=== PATIENT | male | born 1970 | race Caucasian/White ===

== ENCOUNTER → 2017-10-18 08:12 | Outpatient (CLI) | payer BC, SELFPAY ==
[2017-10-18 08:52] LABS: Hemoglobin A1c 7.4 % (4.2-6.3)
[2017-10-18 08:58] LABS: ALB/GLOB Ratio 1.4 RATIO (0.9-2.4); AST(SGOT) 18 U/L (15-37); Alanine Aminotransfer ALT/SGPT 45 U/L (16-61); Alkaline Phosphatase 68 U/L (45-117); Anion Gap 8 (5-15); BUN 17 mg/dL (7-18); BUN/Creat Ratio 18.6 RATIO (10-20); Calcium,Total 8.9 mg/dL (8.5-10.1); Chloride 108 mmol/L (98-107); Cholesterol 150 mg/dL (200); Creatinine, Serum 0.92 mg/dL (0.70-1.30); EST Glomerular Filtration Rate 94 mL/min (>60); Est Glom Filt Rate - Afr Amer 114 mL/min (>60); Globulin 2.9 g/dL (2.2-4.2); Glucose 148 mg/dL (74-106); High Density Lipoprotein 27 mg/dL; Potassium 4.4 mmol/L (3.5-5.1); Protein, Total 6.9 g/dL (6.4-8.2); Sodium Level 141 mmol/L (136-145); Thyroid Stim Hormone (TSH) 1.52 uIU/mL (0.358-3.74); Triglycerides 214 mg/dL; Very Low Density Lipoprotein 43 mg/dL (5-40)
== END ==
DX: E11.9 Type 2 diabetes mellitus without complications (principal); Z13.29 Encounter for screening for other suspected endocrine disorder
CPT/HCPCS: 80053; 80061; 83036; 84443

== ENCOUNTER → 2017-12-18 09:25 | Outpatient (CLI) | payer BC, SELFPAY ==
--- NOTE | 2017-12-18 09:37 | EKG12_ITS ---
Test Reason : PREOP Blood Pressure : / mmHG Vent. Rate : 063 BPM Atrial Rate : 063 BPM P-R Int : 158 ms QRS Dur : 088 ms QT Int : 388 ms P-R-T Axes : 016 025 006 degrees QTc Int : 397 ms Normal sinus rhythm Normal ECG Confirmed by BESS BARRERA, MARIA ESTHER ([id number]), book or script editor FRED MENDIETA ([id number]) on 12/20/2017 2:01:56 PM Referred By: George Aguilar Confirmed By:MARIA ESTHER KELLOGG MD
[2017-12-18 09:55] LABS: Hematocrit 46.9 % (40-54); Mean Corp Hgb Conc 34.1 g/gl (32-36); Mean Corpuscular Hgb 29.3 pg (27.0-32.0); Mean Corpuscular Volume 85.7 fL (80-94); Mean Platelet Vol. 8.8 fl (6.2-12.0); Platelet Count 282 K/mm3 (150-450); RBC Distribution Width CV 13.2 % (11.6-14.6); RBC Distribution Width SD 41.1 fl (35.1-43.9); Red Blood Count 5.47 M/mm3 (4.6-6.2); White Blood Count 6.6 K/mm3 (4.4-11.0)
[2017-12-18 09:56] LABS: Scan Indicated on CBC? Y/N NO
[2017-12-18 10:15] LABS: Anion Gap 7 (5-15); BUN 15 mg/dL (7-18); BUN/Creat Ratio 15.4 RATIO (10-20); Chloride 102 mmol/L (98-107); Creatinine, Serum 0.97 mg/dL (0.70-1.30); EST Glomerular Filtration Rate 88 mL/min (>60); Est Glom Filt Rate - Afr Amer 106 mL/min (>60); Glucose 235 mg/dL (74-106); Potassium 4.1 mmol/L (3.5-5.1); Sodium Level 137 mmol/L (136-145)
== END ==
PROVIDERS: Family Provider Family Medicine; PCP Family Medicine; Visit Provider Orthopaedic Surgery
DX: Z01.810 Encounter for preprocedural cardiovascular examination (principal)
CPT/HCPCS: 36415; 80048; 85027; 93005

== ENCOUNTER 2018-08-14 16:00 | Outpatient (RCR) | payer BC, SELFPAY ==
--- NOTE | 2018-09-25 15:26 | HP.PTDCNRP_ITS ---
HP - Discharge Summary (1) - Patient Information JHONNY VIRAMONTES was seen in my office for initial evaluation on 08/05/18. The following Plan of Care was established for this patient: Initial Frequency: 2x /Week Initial Duration: 4 Weeks - Anticipated Interventions Patient/Client Instruction: Educate patient on: Condition, Plan of Care For the Purpose of:: To decrease pain, To increase ROM, To improve muscle perfo rmance and motor function, To improve ability to perform ADL's, To increase tolerance to activity/condition/position, To improve performance and independence with ADL's, To improve ability of physical actions for home/community/work/leisure, To improve health of tissue, To decrease soft tissue restriction, To reduce risk of recurrence, To improve ability to perform tasks related to life management Therapeutic Exercise to Include: Strength training, Body mechanics, Postural training, Flexibilty training, Active ROM, Dynamic Lumbar Stabilization, Molly Exercises For the Purpose of:: To decrease pain, To increase ROM, To improve muscle performance and motor function, To improve ability to perform ADL's, To increase tolerance to activity/condition/position, To improve performance and independence with ADL's, To decrease level of supervision to perform tasks, To improve ability of physical actions for home/community/work/leisure, To improve health of tissue, To decrease soft tissue restriction, To improve ability to perform tasks related to life management TENS: Yes IF ES: Yes Cryotherapy (ice pack, ice massage): Yes Thermo therapy (hot pack): Yes Ultrasound (thermal/non thermal): Yes For the Purpose of:: To decrease pain, To improve nutrient delivery to tissue, To improve health of tissue, To decrease soft tissue restriction This patient was last seen in our office 08/14/18. Pertinent comments regarding their Physical therapy will appear below: Patient seen for PT for lumbar pain with PT focusing on Molly ex's ,postutre ,DLS . Patient met goals doing well,thus d/c. At this point I will be discontinuing this patient from physical therapy. I would be happy to see this patient again in the future if found appropriate by the physician. Thank you! Americo Espino, PT, Cert MDT, OCS
--- NOTE | 2018-09-25 15:26 | HP.PTEVAL_ITS ---
Patient's Visit Information JHONNY VIRAMONTES is a 48 year old M referred to Physical Therapy by Ivy Quinn DO with a diagnosis of BACK PAIN. Date of Evaluation: 08/05/18 Physical Therapist: Americo Espino PT, Cert MDT, [facility] - Visit Plan Frequency: 2x /Week Duration: 4 Weeks Plan: DARIANA EX'S.DLS ABD BACK.MODALITIES ,POSTURAL EX'S - Subjective Findings: This 48 y/o male presents to physical therapy with low back pain. Patient has had lumbar pain 1 / ,while combining it a hole travis lumbar. Then noticed incidous onset of lumbar pain symmtrical and lateral leg thigh to knee occassional lateral toe. Symptoms today left lumbar to lateral hip to knee. Agrravating factors standing, bending,lifting,squatting,walking. Aleviating symptoms with rest,sitting. C/O occassioanlly parathesia/tingling left leg. Coughing/seezing-. Bowel/bladder good. Sleeping good. Patient seen x-rays DDD/spurs. Seen chiropractor made symptoms worse.Patient pain affects QOL and job demands/jimenez. SOCAIL: . VOCATION:[employer],jimenez part-time - Pain Bilateral Back Pain Intensity (Out of 10): 0 - Objective POSTURE: reduce lordosis. GAIT: mild foward posture slow antalgic gait. PALAPTION: unremarkable. NEURO: intact ,reflexes L3-4,L4-5,L5-S1 3/3,denies parathesia/tingling. LUMBAR ROM: flexion min loss,extension mod loss,side g lides min loss pain ..with flexion /extension. MMT: quads/hams/hip 4/5,ankle 4/5. FLEXABLITY: hams min tight - Special Tests L/S Slump test left side: Negative L/S Slump test right side: Negative L/S Left Straight Leg Raise: Negative L/S Right Straight Leg Raise: Negative Lumbar Standing: Flexion - Mechanical Response: No effect Lumbar Standing: Flexion - Symptoms During Testing: Increases Lumbar Standing: Flexion - Symptoms After Testing: Worse Lumbar Standing: Extension - Mechanical Response: No effect Lumbar Standing: Extension - Symptoms During Testing: Increases Lumbar Standing: Extension - Symptoms After Testing: Worse Lumbar Standing: Right Side Glides - Mechanical Response: No effect Lumbar Standing: Right Side [place] - Symptoms During Testing: Increases Lumbar Standing: Right Side [place] - Symptoms After Testing: No worse Lumbar Standing: Left Side [place] - Mechanical Response: No effect Lumbar Standing: Left Side [place] - Symptoms During Testing: Decreases Lumbar Standing: Left Side [place] - Symptoms After Testing: No better Lumbar Lying: Flexion - Mechanical Response: No effect Lumbar Lying: Flexion - Symptoms During Testing: Increases Lumbar Lying: Flexion - Symptoms After Testing: Worse Lumbar Lying: Extension - Symptoms During Testing: No effect Lumbar Lying: Extension - Symptoms After Testing: Worse Comments:: lateral hip leg - Goals Goal 1:: Independant with HEP Goal Time Frame: 4-6 Weeks Goal 2:: Independant with posture/body mechanics Goal Time Frame: 4-6 Weeks Goal 3:: Patient to decrease lumbar pain and radicular symptoms by 50% or greater to improve function. Goal Time Frame: 4-6 Weeks Goal 4:: Patient to improve lumbar ROM for function of rwecovery Goal Time Frame: 4-6 Weeks Goal 5:: Patient to improve PREETHI back score by 5 points or greater to improve QOL. Goal Time Frame: 4-6 Weeks - Rehabilitation Potential Physical Therapy Diagnosis: This patient appears to have derrangement below knee vs lateral stenosis with pain with motion,and impairs ability to perform arben demands this benifit from skille PT Rehabilitation Potential: Good - Anticipated Interventions Patient/Client Instruction: Educate patient on: Condition, Plan of Care For the Purpose of:: To decrease pain, To increase ROM, To improve muscle performance and motor function, To improve ability to perform ADL's, To increase tolerance to activity/condition/position, To improve performance and independence with ADL's, To improve ability of physical actions for home/community/work/leisure, To improve health of tissue, To decrease soft tissue restriction, To reduce risk of recurrence, To improve ability to perform tasks related to life management Therapeutic Exercise to Include: Strength training, Body mechanics, Postural training, Flexibilty training, Active ROM, Dynamic Lumbar Stabilization, Mc[place]zie Exercises For the Purpose of:: To decrease pain, To increase ROM, To improve muscle performance and motor function, To improve ability to perform ADL's, To increase tolerance to activity/condition/position, To improve performance and independence with ADL's, To decrease level of supervision to perform tasks, To improve ability of physical actions for home/community/work/leisure, To improve health of tissue, To decrease soft tissue restriction, To improve ability to perform tasks related to life management TENS: Yes IF ES: Yes Cryotherapy (ice pack, ice massage): Yes Thermo therapy (hot pack): Yes Ultrasound (thermal/non thermal): Yes For the Purpose of:: To decrease pain, To improve nutrient delivery to tissue, To improve health of tissue, To decrease soft tissue restriction Thank you for the opportunity to evaluate your patient. For Medicare and Medicare HMO plans, please review the plan of care and approve it. It will need to be FAXED BACK to us at [phone] for Medicare purposes. For Medicare only, by signing this I certify the plan of care. Please let me know if there are questions or concerns regarding this plan of care. Physician Signature:__ Date:
== END 2018-08-14 19:00 | disposition home or self-care (01) ==
LOC: PT 16:00
DX: M54.5 Low back pain (principal)
CPT/HCPCS: 97014; 97110; 97161; G0283

== ENCOUNTER 2020-10-03 19:26 | Emergency (ER) | payer OTHER, SELFPAY ==
[2020-10-03 19:27] VITALS: BP 160/89; PULSE 145; RESP 16; TEMP 36.7; O2SAT 94; BMI 32.6
[2020-10-03 19:35] VITALS: BP 156/100; PULSE 118; RESP 20; O2SAT 96
--- NOTE | 2020-10-03 19:41 | CT_ITS ---
STUDY: CT ABDOMEN AND PELVIS WITHOUT CONTRAST REASON FOR EXAM: Male, 50 years old. RUQ PAIN X FEW HOURS WITH N/V AND DYSPNEA, HX APPY, LUMBAR SX, HTN RADIATION DOSAGE (If Supplied By Facility): CTDIvol = ( 16.80 ) mGy, DLP = ( 940.21 ) mGycm TECHNIQUE: Transaxial images were obtained from the dome of the diaphragm to the symphysis pubis without oral contrast, and without intravenous contrast. Sagittal and coronal images were reconstructed. Individualized dose optimization techniques were used for this CT. COMPARISON: CT of abdomen and pelvis dated OCTOBER 11, 2014 FINDINGS: The visualized lung bases are unremarkable. The visualized portions of the heart are within normal limits. Normal liver. Normal gallbladder and extrahepatic biliary system. Normal spleen. Normal pancreas. Normal bilateral adrenal glands. Normal right kidney. Normal left kidney. No hydronephrosis or radiopaque stones. Normal visualized stomach. The small bowel loops are mildly fluid-filled. No evidence of small bowel obstruction. Normal colon. There are surgical clips in the region of the appendix consistent with a prior appendectomy. There is diffuse atherosclerotic calcification of the abdominal aorta, without a demonstrated aneurysm. Normal inferior vena cava. Normal retroperitoneum. Normal urinary bladder. Normal abdominal wall. There are diffuse degenerative changes of the visualized lumbar spine. CT/Abdomen/Pelvis without Cont IMPRESSION: The small bowel loops are mildly fluid-filled. No evidence of small bowel obstruction. Electronically Signed: Dominic Dc MD at 20:35 EDT , Service support ,
--- NOTE | 2020-10-03 19:42 | EKG12_ITS ---
Test Reason : ABDOMINAL PAIN Blood Pressure : / mmHG Vent. Rate : 120 BPM Atrial Rate : 120 BPM P-R Int : 152 ms QRS Dur : 082 ms QT Int : 308 ms P-R-T Axes : 045 055 035 degrees QTc Int : 435 ms Sinus tachycardia Otherwise normal ECG Confirmed by WALTER BARRERA, ARIAS ([id number]), clinical editor ARTURO LEO ([id number]) on 10/05/2020 8:41:00 AM Referred By: FERDINAND Confirmed By:ROXIE WATSON MD
[2020-10-03] MEDS: Ondansetron 4 MG/2 ML Vial IV (19:58)
[2020-10-03] MEDS: Morphine 4 MG/ML Syringe IV (19:59)
[2020-10-03] MEDS: 0.9% Normal Saline 1,000 ML 1000 ML IV (20:02)
[2020-10-03 20:38] LABS: Absolute Lymphocyte Count 1.11 X10^3/uL (0.83-4.51); Basophil# 0.05 X10^3/uL; Basophil% 0.5 % (0-1); Eosinophil# 0.13 X10^3/uL; Eosinophils% 1.3 % (0-5); Hematocrit 48.8 % (40-54); Hemoglobin 16.4 g/dL (13.0-16.5); Lymphocyte # 1.11 X10^3/ul (0.83-4.51); Lymphocyte % 10.9 % (19-41); Mean Corp Hgb Conc 33.6 g/dL (32-36); Mean Corpuscular Hgb 29.2 pg (27.0-32.0); Mean Corpuscular Volume 86.8 fL (80-94); Mean Platelet Vol. 8.3 fl (6.2-12.0); Monocyte# 0.95 X10^3/uL; Monocyte% 9.3 % (0-10); NRBC Flagged by Analyzer 0 % (0-5); Neutrophil # 7.96 X10^3/uL (2.7-7.7); Neutrophil % 77.7 % (47-70); Platelet Count 260 K/mm3 (150-450); RBC Distribution Width CV 13.4 % (11.6-14.6); RBC Distribution Width SD 42.7 fl (35.1-43.9); Red Blood Count 5.62 M/mm3 (4.6-6.2); White Blood Count 10.2 K/mm3 (4.4-11.0)
[2020-10-03 20:55] LABS: ALB/GLOB Ratio 1.2 RATIO (0.9-2.4); AST(SGOT) 11 U/L (15-37); Alanine Aminotransfer ALT/SGPT 35 U/L (16-61); Alkaline Phosphatase 67 U/L (45-117); Anion Gap 7 (5-15); BUN 21 mg/dL (7-18); BUN/Creat Ratio 20.8 RATIO (10-20); Calcium,Total 8.5 mg/dL (8.5-10.1); Chloride 104 mmol/L (98-107); Creatinine, Serum 1.01 mg/dL (0.70-1.30); EST Glomerular Filtration Rate 83 mL/min (>60); Est Glom Filt Rate - Afr Amer 101 mL/min (>60); Estimated Creatinine Clearance 84.65 ml/min; Globulin 3.2 g/dL (2.2-4.2); Glucose 251 mg/dL (74-106); Lipase 128 U/L (73-393); Potassium 4.1 mmol/L (3.5-5.1); Protein, Total 7.2 g/dL (6.4-8.2); Sodium Level 137 mmol/L (136-145)
[2020-10-03 21:00] VITALS: BP 140/80; PULSE 102; RESP 18; O2SAT 95
[2020-10-03 21:06] LABS: Bacteria 0 SEEN /hpf (None Seen); Mucous, Urine 0 SEEN /hpf (<or=2+); Red Blood Cells-Urine 0 SEEN /hpf (0-5)
--- NOTE | 2020-10-03 21:09 | ED.VISSUMM ---
- ER Visit Summary Date of Service: 10/03/20 Chief Complaint: Flank and abdominal pain History of Present Illness: The patient is a [address] Stewart. He reports that he has right upper quadrant and flank pain again at 130 this afternoon. Is continuous pain waxes and wanes. It is a constant dull pain sharp episodes. 19 hours and 710 currently. Nothing makes this better or worse. She had nausea without vomiting. No diarrhea. His last bowel was today. No melena medic easier. No dysuria or frequency. Patient reports he has had similar symptoms in the past and has had multiple investigations of his gallbladder. However, he denies any spicy or fatty food intolerance. Physical Examination: Vitals: Stable. Afebrile. General: Well-nourished and well-developed. Head: Normocephalic atraumatic. Neck: Supple, no lymphadenopathy. No JVD. Nontender. Cardiovascular: Regular tachycardic rhythm. No murmurs. Respiratory: No respiratory distress. Clear to auscultation bilaterally. Abdominal: Soft, moderate tenderness palpation right upper quadrant and epigastric region, nondistended, normal bowel sounds. No guarding, rebound, or peritoneal signs. Back: Mild right CVA tenderness. Extremities: Nontender, no edema. Skin: Normal color, no rash. Neurologic: Alert and oriented ?3. Cranial nerves II through XII are intact. Normal strength and sensation. Psych: Normal affect. Test Results: EKG is sinus tachycardia 120s nonspecific ST changes. CBC shows segmented neutrophils 78 lymphocytes of 11. Chem-7 shows a glucose 251 BUN 21. LFTs are normal. Lipase is normal. Troponin is negative. Urinalysis shows no evidence of infection. Clinical Impression(s) from Imaging Studies Abdomen/Pelvis CT 10/03/20 19:41 IMPRESSION: The small bowel loops are mildly fluid-filled. No evidence of small bowel obstruction. Electronically Signed: Dominic Dc MD at 20:35 EDT , Service support , Emergency Department Course and Treatment: Patient had an IV placed. He was given 2 L of normal saline. He was given morphine and Zofran IV. He is resting more comfortably. CT does not give an explanation for his pain. He does not have a kidney stone. His appendix is absent. His gallbladder is normal. Ultrasound is not here at this time to do a right upper quadrant ultrasound. However, I do not feel that that is indicated at this time as I do not think it will change his management. His white count is normal. His LFTs and lipase are normal. Treatment Plan: Patient will be discharged with Freeman and Zofran. Instructed to follow-up his primary care physician within 2 days for another exam. Discussed that at this time I do not have an explanation for his pain and that it may be biliary in origin. He is instructed to avoid any fatty foods. Return to the emergency department for any worsening symptoms. Disposition: To home in improved and stable condition. Impression: 1. Abdominal pain, uncertain cause. 2. Flank pain, uncertain cause. This note was generated with [employer] dictation software. It may contain incorrect words, spelling, and punctuation that were not noted in review of the chart prior to signing ED Disposition - Plan for ED Patient: Instructions: ED Unknown Causes of Abdominal ... Prescriptions: Hydrocodone Bitart/Apap 5-325 [Freeman 5MG-325MG] 1 tablet PO Q4H PRN PRN 2 Days #10 tab PRN Reason: Pain Prescription Printed Ondansetron [Zofran Odt] 4 mg PO Q8H PRN PRN #10 tablet PRN Reason: Nausea Prescription Printed Referrals: Andrew Smith [employer]EL FRONT DESK CLERK, [employer]EL FRONT DESK CLERK-C [Primary Care Provider] - 2 Days
[2020-10-03 21:10] LABS: Color, Urine Yellow (Yellow); Glucose, Dipstick 1000 mg/dl (Normal); Ketone-Dipstick 15 mg/dl (Negative); Leukocyte Esterase-Dipstick Negative /ul (Negative); Nitrite-Dipstick Negative (Negative); Occult Blood-Urine Negative /ul (Negative); Protein-Dipstick 30 mg/dl (Negative); Urine Bilirubin Dipstick Negative (Negative); Urine Clarity Clear (Clear); Urine Urobilinogen Normal (Normal)
[2020-10-03 21:19] LABS: Squamous Epithelial Cells - UA 0-5 SEEN /hpf (0-5); White Blood Cells 0-5 SEEN /hpf (0-5)
[2020-10-03 21:47] VITALS: BP 128/78; PULSE 109; RESP 16; O2SAT 95
== END 2020-10-03 21:48 | disposition home or self-care (01) ==
LOC: ED 19:52
PROVIDERS: Emergency Provider Emergency Medicine; PCP Nurse Practitioner Primary Care
DX: R10.11 Right upper quadrant pain (principal); R10.9 Unspecified abdominal pain; R68.83 Chills (without fever); R06.00 Dyspnea, unspecified; R11.0 Nausea; R51.9 Headache, unspecified; I10 Essential (primary) hypertension; E11.9 Type 2 diabetes mellitus without complications; K58.9 Irritable bowel syndrome, unspecified; Z79.84 Long term (current) use of oral hypoglycemic drugs; Z79.899 Other long term (current) drug therapy
CPT/HCPCS: 74176; 80053; 81001; 83690; 84484; 85025; 93005; 96361; 96374; 96375; 99285; J7120; A4216; J2405

== ENCOUNTER 2023-08-31 13:59 | Outpatient (RCR) | payer BC, OTHER, SELFPAY ==
--- NOTE | 2023-09-03 15:38 | HP.PTEVAL ---
Patient's Visit Information Visit Information Visit Information: JHONNY VIRAMONTES is a 53 year old M referred to Physical Therapy by KRISTEN CALVERT with a diagnosis of lumbar radiculopathy and DDD of lumbar spine. Date of Evaluation: 09/03/23 Physical Therapist: George Richmond DPT Visit Plan Frequency: 1x/Week Duration: 6 Weeks Plan: Pt. to start with REIL, prone progression. Due to his lower symptoms I want him to work on REIL frequently progressing back into daily activities as tolerated. Pt. to trial on own and call back if needed. Subjective Subjective: Pt. is here today for his initial evaluation with diagnosis of lumbar radiculopathy and DDD of lumbar spine. Pt. reports carrying objects out in the field and had some back pain the following. He has a history of lower lumbar surgery. Sounds like a discectomy. Pt. reports a few weeks ago doing some work, no specific mech of injury, but the next morning having high levels of back and leg pain. He is doing much better than he was previously, mentioning that he even thought about canceling. He does have some soreness still, but only 1-2/10 pain on L side. Pt. denies NT, no changes in B/B and no myotomal weakness noted. Pt. did take a steroid and has been having some relief. He is to go back to physician if not improving. Pt. is hopeful to get back to all work and recreational activities without limitations. Pain Lumbar spine: Pain Intensity (Out of 10): 2 Objective Objective: POSTURE: Pt. has slight flexed posture, normal iliac crest heights. PALPATION: Pt. has mild tenderness along lumbar spinae muscle groups, but not severe. NEURO: normal sensation and normal DTR of BLEs. ROM: LUMBAR SPINE: flexion min loss mild increase NW, ext min loss decrease NB, SB min loss bilat NE, rotation min/nil loss NE bilat. Mild tightness in BHS. MMT: Pt. has 5/5 distal LE strength, 4+/5 L hip strength, 5/5 R hip strength. GAIT: Pt. has slightly methodical gait pattern. Slight decrease in arm swing. STAIRS: fairly normal pattern. Slight increase in use of UEs on railings. Special Tests L/S Slump test left side: Negative L/S Slump test right side: Negative L/S Left Straight Leg Raise: Negative L/S Right Straight Leg Raise: Negative Lumbar Standing: Flexion - Mechanical Response: No effect Lumbar Standing: Flexion - Symptoms During Testing: Increases Lumbar Standing: Flexion - Symptoms After Testing: No worse Lumbar Standing: Extension - Mechanical Response: No effect Lumbar Standing: Extension - Symptoms During Testing: Decreases Lumbar Standing: Extension - Symptoms After Testing: No better Lumbar Standing: Right Side Glides - Mechanical Response: No effect Lumbar Standing: Right Side [place] - Symptoms During Testing: No effect Lumbar Standing: Right Side [place] - Symptoms After Testing: No effect Lumbar Standing: Left Side [place] - Mechanical Response: No effect Lumbar Standing: Left Side [place] - Symptoms During Testing: No effect Lumbar Standing: Left Side [place] - Symptoms After Testing: No effect Lumbar Lying: Flexion - Mechanical Response: No effect Lumbar Lying: Flexion - Symptoms During Testing: No effect Lumbar Lying: Flexion - Symptoms After Testing: No effect Lumbar Lying: Extension - Mechanical Response: No effect Lumbar Lying: Extension - Symptoms During Testing: Increases Lumbar Lying: Extension - Symptoms After Testing: No worse Balance/Special Test Scores Oswestry Low Back Score: 8 Goals Goal 1:: LTG: pt. to be I with HEP. Goal Time Frame: 2-4 Weeks Goal 2:: LTG: Pt. to have full lumbar ROM without increase in symptoms. Goal Time Frame: 2-4 Weeks Goal 3:: LTG: Pt. to complete all work related activities without increase in symptoms. Goal Time Frame: 4-6 Weeks Goal 4:: STG: Pt. to be able to sleep throughout the night without increase in symptoms. Goal Time Frame: 2 Weeks Rehabilitation Potential Physical Therapy Diagnosis: Pt. has signs and symptoms consistent with lumbar radiculopathy and DDD of lumbar spine. Pt. seem to have a directional preference for extension. His symptoms have already started to resolve. I did talk to him about disc anatomy and risk for re injury. Pt. is doing better, I would like him to work on extension progression and then follow back up. Rehabilitation Potential: Excellent Anticipated Interventions Patient/Client Instruction: Educate patient on: Condition, Plan of Care, Risk Factors and Benefits of Fitness Program For the Purpose of:: To foster healthy habits, To improve decision making, To facilitate caregiver knowledge, To prevent re-injury and To improve ability to perform tasks related to life management Therapeutic Exercise to Include: Strength training, Passive ROM, Active ROM, Dynamic Lumbar Stabilization and Milo Exercises For the Purpose of:: To decrease pain, To increase ROM, To improve nutrient delivery to tissue, To increase oxygenation perfusion, To improve muscle performance and motor function and To improve ability to perform ADL's Manual Therapy Techniques to Include: Mobilization and Soft tissue mobilization For the Purpose of:: To decrease pain, To increase ROM, To improve nutrient delivery to tissue, To increase oxygenation perfusion, To improve muscle performance and motor function, To improve ability to perform ADL's and To increase tolerance to activity/condition/position Text: Thank you for the opportunity to evaluate your patient. For Medicare and Medicare HMO plans, please review the plan of care and approve it. It will need to be FAXED BACK to us at [phone] for Medicare purposes. For Medicare only, by signing this I certify the plan of care. Please let me know if there are questions or concerns regarding this plan of care. Physician Signature: Date:
== END 2023-08-31 19:00 | disposition home or self-care (01) ==
LOC: PT 13:59
PROVIDERS: PCP Nurse Practitioner Primary Care
DX: M51.16 Intervertebral disc disorders with radiculopathy, lumbar region (principal)
CPT/HCPCS: 97161

== ENCOUNTER 2023-12-28 14:00 | Outpatient (RCR) | payer OTHER, SELFPAY ==
--- NOTE | 2023-12-05 18:49 | HP.PTEVAL ---
Patient's Visit Information Visit Information Visit Information: JHONNY VIRAMONTES is a 53 year old M referred to Physical Therapy by Tan Navarro PA-C with a diagnosis of Right Shoulder Pain. Date of Evaluation: 12/05/23 Physical Therapist: Tere Alvarez DPT Visit Plan Frequency: 2x /Week Duration: 4 Weeks Plan: 1x a week for progression of HEP- ROM exercises for frozen shoulder and scapular strength/stabilization HEP Given IE: Cane flexion, cane abduction, cane IR, cane ER, table walk away, wall wash, towel IR stretch Subjective Subjective: Right shoulder- its been several months- frozen shoulder- with some tears going with the fibers of the muscle not across. Stepped in a hole and went down and landed on an outstretched arm. The pain is located in the anterior and top of the shoulder. Worst: 4/10 Agg: sleeping on it, sudden movement, lifting something up. Best: 0/10 Eases: nothing that he can think of. He had an injection on 11/22/23- its getting better. He is working on reaching higher and higher. He has had both an x-ray and MRI. The pain does radiate down to the forearm with the sudden movements. He describes the pain as sharp with the movement and its also dull pain most of the other times. Left hand dominate. No N/T in the hand. No LOWE, blurred vision or dizziness. 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 Sleep: better but still keeps him awake sometimes when it aches. He has not had PT on this shoulder. PMHx: DM, HTN, cholesterol, back surgery 4 years ago, knee surgery 5 years ago. Meds: metformin, liporpil, liporpi, jardiance, insulin injection, Objective Objective: Posture: forward head, rounded shoulders- can correct with verbal cues Gait: good arm swing and trunk rotation Palpation: tender along bicipital groove and AC joint ROM: Cervical: WNL, Shoulder: AROM: Flexion: 110 degrees Abd: 100 degrees IR: to outer pocket, ER: 10 degrees. AAROM: Flexion: 130 degrees, Abd: 130 degrees, IR: to belt line, ER: 20 degrees. 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 Balance/Special Test Scores Quick DASH Score: 31.8175 Goals Goal 1:: Patient will be I with HEP and progression Goal Time Frame: 6-8 Weeks Goal 2:: Patient will demo full AROM of the right shoulder Goal Time Frame: 6-8 Weeks Goal 3:: Patient will maintain proper posture t/o tx session to demo increased scap s/s Goal Time Frame: 6-8 Weeks Goal 4:: Patient will report 80% improvement Goal Time Frame: 6-8 Weeks Rehabilitation Potential Physical Therapy Diagnosis: Patient presents with hypomobility- he has decreased shoulder ROM, scapular and UE strength/stabilization and muscular endurance leading to increased pain with ADLs Rehabilitation Potential: Good Anticipated Interventions Patient/Client Instruction: Educate patient on: Benefits of Fitness Program Therapeutic Exercise to Include: Strength training, Endurance training, Coordination, Agility training, Body mechanics, Postural training, Flexibilty training, Neuromotor development, Passive ROM, Active ROM, Dynamic Lumbar Stabilization and Scapular Strength/Stabilization For the Purpose of:: To improve muscle performance and motor function Manual Therapy Techniques to Include: Mobilization, Passive ROM and Soft tissue mobilization For the Purpose of:: To improve ability to perform ADL's TENS: Yes Cryotherapy (ice pack, ice massage): Yes Thermo therapy (hot pack): Yes Ultrasound (thermal/non thermal): Yes Text: Thank you for the opportunity to evaluate your patient. For Medicare and Medicare HMO plans, please review the plan of care and approve it. It will need to be FAXED BACK to us at [phone] for Medicare purposes. For Medicare only, by signing this I certify the plan of care. Please let me know if there are questions or concerns regarding this plan of care. Physician Signature: Date:
--- NOTE | 2024-01-24 15:00 | HP.PT.NRP ---
Patient Information Patient Information: JHONNY VIRAMONTES was seen in my office for initial evaluation on 12/05/23. The following Plan of Care was established for this patient: POC Established Initial Frequency: 2x /Week Initial Duration: 4 Weeks Anticipated Interventions Patient/Client Instruction: Educate patient on: Benefits of Fitness Program Therapeutic Exercise to Include: Strength training, Endurance training, Coordination, Agility training, Body mechanics, Postural training, Flexibilty training, Neuromotor development, Passive ROM, Active ROM, Dynamic Lumbar Stabilization and Scapular Strength/Stabilization For the Purpose of:: To improve muscle performance and motor function Manual Therapy Techniques to Include: Mobilization, Passive ROM and Soft tissue mobilization For the Purpose of:: To improve ability to perform ADL's TENS: Yes Cryotherapy (ice pack, ice massage): Yes Thermo therapy (hot pack): Yes Ultrasound (thermal/non thermal): Yes Last Seen Last Seen: This patient was last seen in our office . Pertinent comments regarding their Physical therapy will appear below: Patient attended PT for a 1x home exercise program and is appropriate to be d.c At this point I will be discontinuing this patient from physical therapy. I would be happy to see this patient again in the future if found appropriate by the physician. Thank you! Tere Alvarez, MIKYT Balance/Gait/Functional tests Balance/Special Test Scores Quick DASH Score: [phone]
== END 2023-12-28 19:00 | disposition home or self-care (01) ==
LOC: PT 14:00
PROVIDERS: PCP Nurse Practitioner Primary Care; Visit Provider Physician Assistant Surgical
DX: M75.01 Adhesive capsulitis of right shoulder (principal); M75.21 Bicipital tendinitis, right shoulder; S46.011D Strain of muscle(s) and tendon(s) of the rotator cuff of right shoulder, subsequent encounter
CPT/HCPCS: 97110; 97162

== ENCOUNTER 2024-11-29 09:52 | Emergency (ER) | payer OTHER, SELFPAY ==
[2024-11-29] VITALS (9 sets, daily range): BP systolic 98–150; BP diastolic 61–84; PULSE 72–91; RESP 14–19; TEMP 36.1–36.2; O2SAT 95–100; BMI 32.1
--- OUTSIDE RECORDS SUMMARY | 2024-11-29 10:48 | XMS RPT_ITS | CCD ---
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 Name Role Phone ROBERT BRODY Primary Care Physician YOEL DOWNING Primary Care Physician ENMA GUERRERO APRN, CNP Primary Care Phys [facility] YOEL DOWNING Attending ENMA Daniels APRN, CNP Primary Care U navailable TODD KELLY-KALEY, VILMA Attending Mikei ENMA Sharpe APRN, CNP Primary Care U navailable MAXIMILIAN KELLY - KALEY, ENMA [place] Attending U navailable MAXIMILIANBRITTANY MENDOZA - KALEY, ENMA [place] Primary Care U navailable JOSE MENDOZA-KALEY, YOEL Attending ENMA Daniels APRN, CNP Primary Care U navailable MAXIMILIAN KELLY - KALEY, ENMA [place] Attending U navailable MAXIMILIAN MENDOZA - ENMA ROCHE Primary Care U navailable JOSE MENDOZA-KALEY, YOEL Attending ENMA Daniels APRN, CNP Primary Care U navailable MAXIMILIAN KELLY - ENMA ROCHE Attending U navailable MAXIMILIAN KELLY - KALEY, ENMA [place] Primary Care U navailable SEFFERODRICK MENDOZA-KALYE, YOEL Attending ENMA Daniels APRN, CNP Primary Care U navailable NAHOMY COOK Referring Unavailable Robert Keen Primary Care Unavailable NAHOMY COOK Attending Unavailable Osmani, Robert Primary Care Unavailable Hunter Duarte Attending Unavailable MAXIMILIANBRITTANY MENDOZA - KALEY, ENMA [place] Attending U navailable MAXIMILIANBRITTANY MENDOZA - KALEY, ENMA D Primary Care U navailable Medications Current Medications Medication Drug Class(es) Dates Sig (Normalized) Sig (Original) acetaminophen 500 mg oral tablet (3 sources) Start: 07-28-2022 acetaminophen 500 mg oral tablet Dose : 1,000 mg = 2 tab(s), Oral, TID, PRN pain or fever, 0 Refill(s) Start Date: 07/28/22 Status: Ordered amoxicillin 875 mg / clavulanate 125 mg oral tablet (1 source) Penicillin-class Antibacterial Start: 11-07-2023 End: 11-17-2023 take 1 tablet by mouth every twelve hours amoxicillin-clavul anate 875 mg-125 mg oral tablet 1 tab(s), Oral, q12h, X 10 day(s), # 20 tab(s), 0 Refill(s), 11/17/23 8:40:00 AM EDT, Pharmacy: [facility], Left lower quadrant pain, 173, cm, 11/07/23 7:55:00 EDT, Height, 96.7, kg, 11/07/23 7:55:00 EDT, Dosing Weight Start Date: 11/07/23 Stop Date: 11/17/23 Status: Ordered Blood Glucose Test Machine (3 sources) Start: 11-30-2021 Blood Glucose Test Machine See Instructions, BID testing - please provide most cost effective machine for patient, # 1 EA, 0 Refill(s), [facility]: [facility], Type 2 diabetes mellitus, 172.7, cm, 11/30/21 7:56:00 EDT, Height, 103.1, kg, 11/30/21 7:56:00 EDT, Dosi... Start Date: 11/30/21 Status: Ordered Start: 01-20-2020 Blood Glucose Test Machine See Instructions, BID testing - please provide most cost effective machine for patient, # 1 EA, 0 Refill(s), [facility], Type 2 diabetes mellitus, 171.45, cm, 01/20/20 15:30:00 EDT, Height, 102.6, kg, 01/20/20 15:30:00 EDT, D... Start Date: 01/20/20 Status: Ordered cholestyramine 4 g/4.8 g oral powder for reconstitution (3 sources) Start: 09-26-2022 take 8 doses by mouth twice daily cholestyramine 4 g/4.8 g oral powder for reconstitution Dose : 8 gram(s) =, Oral, BID, # 120 packet(s), 0 Refill(s), Pharmacy: [facility] #[id number], Irritable bowel disease, 175, cm, 09/01/22 8:37:00 EDT, Height, kg, 09/01/22 8:37:00 EDT, Dosing Weight Start Date: 09/26/22 Status: Ordered Start: 06-02-2022 take 8 doses by mout h twice daily cholestyramine 4 g/4.8 g oral powder for reconstitution Dose : 8 gram(s) =, Oral, BID, # 120 packet(s), 0 Refill(s), Pharmacy: [facility] #[id number], Irritable bowel disease, 172.99, cm, 06/02/22 7:01:00 EST, Height Start Date: 06/02/22 Status: Ordered DME MISCellaneous (2 sources) Start: 10-19-2023 DME MISCellane ous See Instructions, michele 3 sensors #2 sensors apply to back of arm every 14 days to monitor glucose, # 2 EA, 11 Refill(s), Pharmacy: [facility], 173.5, cm, 10/19/23 8:49:00 EDT, Height, 97.5, kg, 10/19/23 8:49:00 EDT, Dosing Weight Start Date: 10/19/23 Status: Ordered Start: 09-22-2022 DME MISCellane ous See Instructions, michele 3 sensors #2 sensors apply to back of arm every 14 days to monitor glucose, # 2 EA, 11 Refill(s), Pharmacy: [facility] #[id number], 175, cm, 09/01/22 8:37:00 EDT, Height, 102.3 Start Date: 09/22/22 Status: Ordered 0.5 ML dulaglutide 9 MG/ML Auto-Injector [Trulicity] (6 sources) GLP-1 Receptor Agonist Start: 09-01-2022 End: 02-28-2023 inject 1 dose by subcutaneous injection every week Trulicity Pen 4.5 mg/0.5 mL subcutaneous solution Dose : 0.5 mL =, Subcutaneous, qWeek, rotate injection sites, # 6.5 mL, 1 Refill(s), [facility]acy: [facility] #[id number], Type 2 diabetes mellitus, 175, cm, 09/01/22 8:37:00 EDT, Height, kg, 09/01/22 8:37:00 EDT, Dosing Weight Start Date: 09/01/22 Stop Date: 02/28/23 Status: Ordered Start: 06-02-2022 End: 08-31-2022 inject 1 dose by subcutaneous injection every week Trulicity Pen 4.5 mg/0.5 mL subcutaneous solution Dose : 0.5 mL =, Subcutaneous, qWeek, rotate injection sites, # 6.5 mL, 0 Refill(s), [facility]: [facility] #[id number], Type 2 diabetes mellitus, 172.99, cm, 06/02/22 7:01:00 EST, Height, kg, 06/02/22 7:01:00 EST, Dosing Weight Start Date: 06/02/22 Stop Date: 08/31/22 Status: Ordered Start: 02-14-2022 End: 05-15-2022 inject 1 dose by subcutaneous injection every week Trulicity Pen 4.5 mg/0.5 mL subcutaneous solution Dose : 0.5 mL =, Subcutaneous, qWeek, rotate injection sites, # 6.5 mL, 0 Refill(s), [facility]acy: [facility] #[id number], Type 2 diabetes mellitus, 172.7, cm, 02/10/22 9:52:00 EDT, Height Start Date: 02/14/22 Stop Date: 05/15/22 Status: Ordered Start: 08-26-2021 End: 11-24-2021 Trulicity Pen 3 mg/0.5 mL subcutaneous solution Dose : 3 mg = 0.5 mL, Subcutaneous, qWeek, 12 pens please, dose increase, rotate injection sites, # 6.5 mL, 0 Refill(s), [facility]: [facility], Type 2 diabetes mellitus, 174, cm, 08/26/21 10:51:00 EST, Height, kg, 08/26/21 10:51:00 EST... Start Date: 08/26/21 Stop Date: 11/24/21 Status: Ordered Start: 06-14-2021 inject 1 dose by sub cutaneous injection every week, then inject 4 doses by subcutaneous injection every week Trulicity Pen 1.5 mg/0.5 mL subcutaneous solution Dose : 1.5 mg =, Subcutaneous, qWeek, Packets=boxes of 4 each. To inject once weekly. E11.9 Has been APPROVED by insurance until 11/16/2021., # 4 packet(s), 3 Refill(s), [facility]: [facility] [facility], Type 2 diabetes mellitus, 174.5, cm, ... Start Date: 06/14/21 Status: Ordered empagliflozin 25 mg oral tablet (6 sources) Sodium-Glucose Cotransporter 2 Inhibitor Start: 10-19-2023 End: 04-16-2024 Jardiance 25 mg oral tablet Dose : 25 mg = 1 tab(s), Oral, qAM, # 90 tab(s), 1 Refill(s), Pharmacy: [facility], Diabetes mellitus type 2, 173.5, cm, 10/19/23 8:49:00 EDT, Height, kg, 10/19/23 8:49:00 EDT, Dosing Weight Start Date: 10/19/23 Stop Date: 04/16/24 Status: Ordered Start: 09-26-2022 End: 12-25-2022 Jardiance 25 mg oral tablet Dose : 25 mg = 1 tab(s), Oral, qAM, # 90 tab(s), 0 Refill(s), [facility]: [id number], Diabetes mellitus type 2, 175, cm, 09/01/22 8:37:00 EDT, Height, kg, 09/01/22 8:37:00 EDT, Dosing Weight Start Date: 09/26/22 Stop Date: 12/25/22 Status: Ordered Start: 06-02-2022 End: 08-31-2022 Jardiance 25 mg oral tablet Dose : 25 mg = 1 tab(s), Oral, qAM, # 90 tab(s), 0 Refill(s), [facility]: [facility] #[id number], Diabetes mellitus type 2, 172.99, cm, 06/02/22 7:01:00 EST, Height, kg, 06/02/22 7:01:00 EST, Dosing Weight Start Date: 06/02/22 Stop Date: 08/31/22 Status: Ordered Start: 06-14-2021 Jardiance 10 m g oral tablet Dose : 20 mg = 2 tab(s), Oral, qAM, # 180 tab(s), 3 Refill(s), [facility]acy: [facility], 174.5, cm, 10/05/20 14:07:00 EDT, Height, kg, 10/05/20 14:07:00 EDT, Dosing Weight Start Date: 06/14/21 Status: Ordered fluconazole 150 mg oral tablet (1 source) Azole Antifungal Start: 02-14-2022 End: 02-15-2022 fluconazole 150 mg oral tablet Dose : 150 mg = 1 tab(s), Oral, qDay, # 1 tab(s), 0 Refill(s), 02/15/22 20:22:00 EDT, [facility]acy: [facility] #[id number], Fungal infection, 172.7, cm, 02/10/22 9:52:00 EDT, Height, 100.1 Start Date: 02/14/22 Stop Date: 02/15/22 Status: Ordered glimepiride 2 mg oral tablet (10 sources) Sulfonylurea Start: 10-19-2023 glimepiride 2 mg oral tablet Dose : 2 mg = 1 tab(s), Oral, qDay, # 90 tab(s), 1 Refill(s), [facility]: [facility], Type 2 diabetes mellitus, 173.5, cm, 10/19/23 8:49:00 EDT, Height, kg, 10/19/23 8:49:00 EDT, Dosing Weight Start Date: 10/19/23 Status: Ordered Start: 09-26-2022 take 1 tablet by ann th before breakfast glimepiride 2 mg oral tablet Dose : 2 mg = 1 tab(s), Oral, qDay, To take before dinner in addition to his 4mg he takes before breakfast., # 90 tab(s), 0 Refill(s), [facility]: [facility] #[id number], Type 2 diabetes mellitus, 175, cm, 09/01/22 8:37:00 EDT, Height, kg, 09/01/22 8:37:00 EDT... Start Date: 09/26/22 Status: Ordered Start: 06-02-2022 take 1 tablet by ann th before breakfast glimepiride 2 mg oral tablet Dose : 2 mg = 1 tab(s), Oral, qDay, To take before dinner in addition to his 4mg he takes before breakfast., # 90 tab(s), 0 Refill(s), [facility]: [facility] #[id number], Type 2 diabetes mellitus, 172.99, cm, 06/02/22 7:01:00 EST, Height Start Date: 06/02/22 Status: Ordered Start: 02-10-2022 End: 11-29-2022 glimepiride 4 mg oral tablet Dose : 4 mg = 1 tab(s), Oral, qDay, # 90 tab(s), 0 Refill(s), [facility]: [facility] #[id number], Type 2 diabetes mellitus, 175, cm, 09/01/22 8:37:00 EDT, Height, kg, 09/01/22 8:37:00 EDT, Dosing Weight Start Date: 09/26/22 Status: Ordered Start: 11-18-2020 glimepiride 4 mg oral tablet Dose : 4 mg = 1 tab(s), Oral, BID, # 180 tab(s), 3 Refill(s), [facility]: [facility], 174.5, cm, 10/05/20 14:07:00 EDT, Height, kg, 10/05/20 14:07:00 EDT, Dosing Weight Start Date: 11/18/20 Status: Ordered 3 ml insulin glargine 100 unt/ml pen injector (1 source) Insulin Analog Start: 10-19-2023 inject 1 dose by subcutaneous injection once daily at bedtime Lantus Solostar Pen 100 units/mL 3 mL Pen Dose : 30 unit(s) =, Subcutaneous, qHS, # 15 mL, 5 Refill(s), Pharmacy: [facility], 173.5, cm, 10/19/23 8:49:00 EDT, Height, kg, 10/19/23 8:49:00 EDT, Dosing Weight Start Date: 10/19/23 Status: Ordered lisinopril 10 mg oral tablet (7 sources) Angiotensin Converting Enzyme Inhibitor Start: 10-19-2023 lisinopril 10 mg oral tablet Dose : 10 mg = 1 tab(s), Oral, qDay, # 90 tab(s), 1 Refill(s), Pharmacy: [facility] #[facility], Type 2 diabetes mellitus Hypertension, 173.5, cm, 10/19/23 8:49:00 EDT, Height, kg, 10/19/23 8:49:00 EDT, Dosing Weight Start Date: 10/19/23 Status: Ordered Start: 02-10-2022 End: 11-29-2022 lisinopril 10 mg oral tablet Dose : 10 mg = 1 tab(s), Oral, qDay, # 90 tab(s), 0 Refill(s), [id number], Type 2 diabetes mellitus Hypertension, 175, cm, 09/01/22 8:37:00 EDT, Height, kg, 09/01/22 8:37:00 EDT, Dosing Weight Start Date: 09/26/22 Status: Ordered Start: 06-14-2021 take 1 tablet by ann th once daily lisinopril 10 mg oral tablet See Instructions, take 1 tablet by mouth once daily, # 90 tab(s), 5 Refill(s), [facility]: [facility] [place] [address], Type 2 diabetes mellitus, 174.5, cm, 10/05/20 14:07:00 EDT, Height, kg, 10/05/20 14:07:00 EDT, Dosing Weight Start Date: 06/14/21 Status: Ordered metFORMIN hydrochloride 500 mg oral tablet (7 sources) Biguanide Start: 10-19-2023 MetFORMIN (Eqv -Glucophage XR) 500 mg oral tablet, EXTENDED RELEASE Dose : 2,000 mg = 4 tab(s), Oral, qDay, # 360 tab(s), 1 Refill(s), Pharmacy: [facility], Type 2 diabetes mellitus, 173.5, cm, 10/19/23 8:49:00 EDT, Height, kg, 10/19/23 8:49:00 EDT, Dosing Weight Start Date: 10/19/23 Status: Ordered Start: 02-10-2022 End: 11-29-2022 MetFORMIN (Eqv-Glucophage XR ) 500 mg oral tablet, EXTENDED RELEASE Dose : 2,000 mg = 4 tab(s), Oral, qDay, # 360 tab(s), 0 Refill(s), [id number], Type 2 diabetes mellitus, 175, cm, 09/01/22 8:37:00 EDT, Height, kg, 09/01/22 8:37:00 EDT, Dosing Weight Start Date: 09/26/22 Status: Ordered Start: 08-26-2021 End: 11-24-2021 MetFORMIN (Eqv-Glucophage XR ) 500 mg oral tablet, EXTENDED RELEASE Dose : 2,000 mg = 4 tab(s), Oral, qDay, # 360 tab(s), 0 Refill(s), [facility] [address], Type 2 diabetes mellitus, 174, cm, 08/26/21 10:51:00 EST, Height, kg, 08/26/21 10:51:00 EST, Dosing Weight Start Date: 08/26/21 Stop Date: 11/24/21 Status: Ordered Start: 06-14-2021 metFORMIN 1000 mg oral tablet (IR) Dose : 1,000 mg = 1 tab(s), Oral, BID, # 180 tab(s), 3 Refill(s), [facility] [address], Type 2 diabetes mellitus, 174.5, cm, 10/05/20 14:07:00 EDT, Height, kg, 10/05/20 14:07:00 EDT, Dosing Weight Start Date: 06/14/21 Status: Ordered naproxen sodium 220 mg oral tablet (6 sources) Nonsteroidal Anti-inflammatory Drug Start: 05-27-2019 Aleve 220 mg oral tablet Dose : 440 mg = 2 tab(s), Oral, q8h, PRN for pain, 0 Refill(s) Start Date: 05/27/19 Status: Ordered omeprazole 40 mg delayed release oral capsule (4 sources) Proton Pump Inhibitor Start: 11-07-2023 omeprazo le 40 mg oral delayed release capsule 0 Refill(s) Start Date: 11/07/23 Status: Ordered Start: 02-10-2022 omeprazole 40 mg oral delayed release capsule Dose : 40 mg = 1 cap(s), Oral, qDay, # 90 cap(s), 3 Refill(s), [facility]: [facility] #[id number], 172.7, cm, 02/10/22 9:52:00 EDT, Height, kg, 02/10/22 9:52:00 EDT, Dosing Weight Start Date: 02/10/22 Status: Ordered Start: 11-18-2020 omeprazole 40 mg oral delayed release capsule Dose : 40 mg = 1 cap(s), Oral, qDay, # 90 cap(s), 3 Refill(s), [facility]: [facility], 174.5, cm, 10/05/20 14:07:00 EDT, Height, kg, 10/05/20 14:07:00 EDT, Dosing Weight Start Date: 11/18/20 Status: Ordered ondansetron 4 mg oral tablet (1 source) Serotonin-3 Receptor Antagonist Start: 11-07-2023 Zofran 4 mg oral tab let Dose : 4 mg = 1 tab(s), Oral, q8h, PRN Nausea/Vomiting, # 15 tab(s), 0 Refill(s), Pharmacy: [facility], Left lower quadrant pain, 173, cm, 11/07/23 7:55:00 EDT, Height, kg, 11/07/23 7:55:00 EDT, Dosing Weight Start Date: 11/07/23 Status: Ordered simvastatin 10 mg oral tablet (7 sources) HMG-CoA Reductase Inhibitor Start: 10-19-2023 simvastatin 10 mg or al tablet Dose : 10 mg = 1 tab(s), Oral, qHS, # 90 tab(s), 1 Refill(s), Pharmacy: [facility], Diabetes mellitus type 2, 173.5, cm, 10/19/23 8:49:00 EDT, Height, kg, 10/19/23 8:49:00 EDT, Dosing Weight Start Date: 10/19/23 Status: Ordered Start: 09-26-2022 End: 10-26-2022 simvastatin 10 mg oral table t Dose : 10 mg = 1 tab(s), Oral, qHS, # 90 tab(s), 0 Refill(s), Pharmacy: [facility] #[id number], Diabetes mellitus type 2, 175, cm, 09/01/22 8:37:00 EDT, Height, kg, 09/01/22 8:37:00 EDT, Dosing Weight Start Date: 09/26/22 Stop Date: 10/26/22 Status: Ordered Start: 06-02-2022 End: 07-02-2022 simvastatin 10 mg oral table t Dose : 10 mg = 1 tab(s), Oral, qHS, # 30 tab(s), 0 Refill(s), Pharmacy: [facility] #[id number], Diabetes mellitus type 2, 172.99, cm, 06/02/22 7:01:00 EST, Height, kg, 06/02/22 7:01:00 EST, Dosing Weight Start Date: 06/02/22 Stop Date: 07/02/22 Status: Ordered Start: 11-30-2021 simvastatin 10 mg oral tablet Dose : 10 mg = 1 tab(s), Oral, qHS, # 90 tab(s), 3 Refill(s), [facility]: [facility], Diabetes mellitus type 2, 172.7, cm, 11/30/21 7:56:00 EDT, Height, kg, 11/30/21 7:56:00 EDT, Dosing Weight Start Date: 11/30/21 Status: Ordered Start: 11-18-2020 simvastatin 10 mg oral tablet Dose : 10 mg = 1 tab(s), Oral, qHS, # 90 tab(s), 3 Refill(s), [facility]: [facility], 174.5, cm, 10/05/20 14:07:00 EDT, Height, kg, 10/05/20 14:07:00 EDT, Dosing Weight Start Date: 11/18/20 Status: Ordered Completed/Discontinued Medications Medication Drug Class(es) Dates Sig (Normalized) Sig (Original) dicyclomine hydrochloride 10 mg oral capsule (1 source) Anticholinergic Start: 06-26-2022 End: 07-03-2022 dicyclomine 10 mg oral capsule Dose : 10 mg = 1 cap(s), Oral, QID, # 28 cap(s), 0 Refill(s), [facility]acy: [facility] #[id number], IBS (irritable colon syndrome), 175.3, cm, 06/26/22 10:33:00 EST, Height Start Date: 06/26/22 Stop Date: 07/03/22 Status: Ordered FreeStyle Michele 3 Sensor device (1 source) Start: 11-07-2023 FreeStyle Michele 3 Sensor device FreeStyle Michele 3 Sensor device, 0 Refill(s), 97.5 Start Date: 11/07/23 Status: Ordered Problems Problem Classification Problem Date Documented Da te Episodic/Chronic Abdominal pain (3 sources) Abdominal pain; Translations: [Unspecified abdominal pain] Episodic Diabetes mellitus without complication (12 sources) Type 2 diabetes mellitus; Translations: [Type 2 diabetes mellitus without complication] Onset: 01-18-2024 05-27-2019 Chronic Disorders of lipid metabolism (4 sources) Mixed hyperlipidemia; Translations: [Hyperlipidemia] 09-01-2022 Chronic Esophageal disorders (8 sources) Gastro-esophageal reflux disease with esophagitis; Translations: [Gastroesophageal reflux disease] 01-16-2019 Chronic Essential hypertension (12 sources) Hypertensive disorder; Translations: [Essential (primary) hypertension] Onset: 01-18-2024 01-16-2019 Chronic Mycoses (4 sources) Pityriasis versicolor 11-30-2021 Episodic Other connective tissue disease (8 sources) Diastasis recti 01-16-2019 Episodic Other connective tissue disease (1 source) Adhesive capsulitis of right shoulder; Translations: [Adhesive capsulitis of right shoulder] Onset: 01-25-2024 Episodic Other connective tissue disease (1 source) Bicipital tendinitis, right shoulder; Translations: [Bicipital tendinitis, right shoulder] Onset: 01-25-2024 Episodic Other gastrointestinal disorders (11 sources) Irritable bowel syndrome 01-16-2019 Chronic Comment on above: w/ diarrhea Other gastrointestinal disorders (1 source) Diarrhea; Translations: [Diarrhea, unspecified] Episodic Other liver diseases (2 sources) Steatosis of liver 01-16-2019 Chronic Other male genital disorders (1 source) Impotence 04-25-2024 Chronic Other nutritional; endocrine; and metabolic disorders (2 sources) Body mass index 30+ - obesity 06-29-2023 Chronic Residual codes; unclassified (8 sources) Obstructive sleep apnea syndrome 01-16-2019 Chronic Residual codes; unclassified (2 sources) Increased body mass index 06-29-2023 Episodic Spondylosis; intervertebral disc disorders; other back problems (2 sources) Spondylosis 06-29-2023 Chronic Spondylosis; intervertebral disc disorders; other back problems (1 source) Radiculopathy, lumbar region; Translations: [Radiculopathy, lumbar region] Onset: 03-19-2024 Episodic Sprains and strains (1 source) Strain of muscle(s) and tendon(s) of the rotator cuff of right shoulder, initial encounter; Translations: [Strain of muscle(s) and tendon(s) of the rotator cuff of right shoulder, initial encounter] Onset: 01-25-2024 Episodic Unclassified (12 sources) Patient encounter status 08-26-2021 Unclassified (2 sources) Non-smoker 06-29-2023 Unclassified (2 sources) Pain of knee region 10-19-2023 Unclassified (2 sources) Pain of right shoulder region 10-19-2023 Results Test Name Value Interpretation Reference Range Facility .Auto Diffon 06-14-2024 Basophil, Absolute 0.0 10 3/mcL Normal 0.0-0.2 [facility] Comment on above: Performed By: #### A CHARLEEN, GFR, PSA, A1C, CBC, LIPID, CMP, ADIFF #### [address] [address] Basophils/100 WBC (Bld) 0.7 % Normal 0.0-2.5 [facility] Comment on above: Performed By: #### A CHARLEEN, GFR, PSA, A1C, CBC, LIPID, CMP, ADIFF #### [id number] [place], [place] [address] Eosinophil, Absolute 0.1 10 3/mcL Normal 0.0-0.7 [facility] Comment on above: Performed By: #### A CHARLEEN, GFR, PSA, A1C, CBC, LIPID, CMP, ADIFF #### [address] [address] Eosinophils/100 WBC (Bld) 1.8 % Normal 0.0-7.0 [facility] Comment on above: Performed By: #### A CHARLEEN, GFR, PSA, A1C, CBC, LIPID, CMP, ADIFF #### [address] [address] Lymphocyte, Absolute 2.3 10 3/mcL Normal 0.9-4.3 [facility] Comment on above: Performed By: #### A CHARLEEN, GFR, PSA, A1C, CBC, LIPID, CMP, ADIFF #### [address] [address] Lymphocytes/100 WBC (Bld) 33.2 % Normal 20.0-40.0 [facility] Comment on above: Performed By: #### A CHARLEEN, GFR, PSA, A1C, CBC, LIPID, CMP, ADIFF #### [address] [address] Monocyte, Absolute 0.7 10 3/mcL Normal 0.1-1.4 [facility] Comment on above: Performed By: #### A CHARLEEN, GFR, PSA, A1C, CBC, LIPID, CMP, ADIFF #### [address] [address] Monocytes/100 WBC (Bld) 10.4 % Normal 2.0-13.0 [facility] Comment on above: Performed By: #### A CHARLEEN, GFR, PSA, A1C, CBC, LIPID, CMP, ADIFF #### [address] [address] Neutrophils/100 WBC (Bld) 53.9 % Normal 50.0-75.0 [facility] Comment on above: Performed By: #### A CHARLEEN, GFR, PSA, A1C, CBC, LIPID, CMP, ADIFF #### [address] [address] .GFRon 06-14-2024 GFR Non- 97 ml/min/1.73sqm Normal [facility] Comment on above: Result Comment: GFR Population mean for , Non- Americans Ages 20-29 = 116 mL/min/1.73 sq.m. Ages 30-39 = 107 mL/min/1.73 sq.m. Ages 40-49 = 99 mL/min/1.73 sq.m. Ages 50-59 = 93 mL/min/1.73 sq.m. Ages 60-69 = 85 mL/min/1.73 sq.m. Ages 70+ = 75 mL/min/1.73 sq.m. Chronic Kidney Disease: Less than 60 mL/min/1.73 square meters End Stage Renal Disease: Less than 15 mL/min/1.73 square meters Performed By: #### A CHARLEEN, GFR, PSA, A1C, CBC, LIPID, CMP, ADIFF #### [id number] [place], [place] [address] GFR 117 ml/min/1.73sqm Normal [facility] Comment on above: Result Comment: GFR Population mean for , Non- Americans Ages 20-29 = 116 mL/min/1.73 sq.m. Ages 30-39 = 107 mL/min/1.73 sq.m. Ages 40-49 = 99 mL/min/1.73 sq.m. Ages 50-59 = 93 mL/min/1.73 sq.m. Ages 60-69 = 85 mL/min/1.73 sq.m. Ages 70+ = 75 mL/min/1.73 sq.m. Chronic Kidney Disease: Less than 60 mL/min/1.73 square meters End Stage Renal Disease: Less than 15 mL/min/1.73 square meters Performed By: #### A CHARLEEN, GFR, PSA, A1C, CBC, LIPID, CMP, ADIFF #### [address] [address] .NEUABSon 06-14-2024 Neutrophil, Absolute 3.8 10 3/mcL Normal 2.3-8.1 [facility] Comment on above: Performed By: #### A CHARLEEN, GFR, PSA, A1C, CBC, LIPID, CMP, ADIFF #### [address] [address] A1Con 06-14-2024 Glucose [Mass/Vol] 183 mg/dL Normal [facility] Comment on above: Result Comment: Kim mated Average Glucose calculated by equation ((28.7xA1C)-46.7) Estimated average glucose (eAG) is a calculated value from Hemoglobin A1C and is event sales representative of the average blood glucose level in the last 2-3 month period. Normal range: less than 114 mg/dL Performed By: #### A CHARLEEN, GFR, PSA, A1C, CBC, LIPID, CMP, ADIFF #### [id number] HbA1c (Bld) [Mass fraction] 8.0 % High 4.3-6.4 [facility] Comment on above: Performed By: #### A CHARLEEN, GFR, PSA, A1C, CBC, LIPID, CMP, ADIFF #### [place] [address] CBCon 06-14-2024 Erythrocyte distribution width (RBC) [Ratio] 14.6 % Normal 11.5-15.5 [facility] Comment on above: Performed By: #### A CHARLEEN, GFR, PSA, A1C, CBC, LIPID, CMP, ADIFF #### [place] [id number] Hematocrit (Bld) [Volume fraction] 47.4 % Normal 40.0-52.0 [facility] Comment on above: Performed By: #### A CHARLEEN, GFR, PSA, A1C, CBC, LIPID, CMP, ADIFF #### [place] [address] Hgb 16.0 G/dL Normal 13.0-17.5 [facility] Comment on above: Performed By: #### A CHARLEEN, GFR, PSA, A1C, CBC, LIPID, CMP, ADIFF #### [place] [address] MCH (RBC) [Entitic mass] 29.6 pg Normal 27.0-33.0 [facility] Comment on above: Performed By: #### A CHARLEEN, GFR, PSA, A1C, CBC, LIPID, CMP, ADIFF #### [place] [address] MCHC 33.7 G/dL Normal 32.0-36.0 [facility] Comment on above: Performed By: #### A CHARLEEN, GFR, PSA, A1C, CBC, LIPID, CMP, ADIFF #### [address] [address] MCV (RBC) [Entitic vol] 87.9 fL Normal 81.0-100.0 [facility] Comment on above: Performed By: #### A CHARLEEN, GFR, PSA, A1C, CBC, LIPID, CMP, ADIFF #### [address] [address] Platelet 266 10 3/mcL Normal 150-450 [facility] Comment on above: Performed By: #### A CHARLEEN, GFR, PSA, A1C, CBC, LIPID, CMP, ADIFF #### [address] [address] Platelet mean volume (Bld) [Entitic vol] 6.5 fL Normal 6.4-10.5 [facility] Comment on above: Performed By: #### A CHARLEEN, GFR, PSA, A1C, CBC, LIPID, CMP, ADIFF #### [address] [address] RBC 5.39 10 6/mcL Normal 4.50-6.00 [facility] Comment on above: Performed By: #### A CHARLEEN, GFR, PSA, A1C, CBC, LIPID, CMP, ADIFF #### [address] [address] WBC 7.0 10 3/mcL Normal 4.5-10.8 [facility] Comment on above: Performed By: #### A CHARLEEN, GFR, PSA, A1C, CBC, LIPID, CMP, ADIFF #### [address] [address] CMPon 06-14-2024 Albumin Level 4.1 G/dL Normal 3.5-5.0 [facility] Comment on above: Performed By: #### A CHARLEEN, GFR, PSA, A1C, CBC, LIPID, CMP, ADIFF #### [address] [address] Albumin/Globulin [Mass ratio] 1.6 {ratio} Normal 1.1-2.5 [facility] Comment on above: Performed By: #### A CHARLEEN, GFR, PSA, A1C, CBC, LIPID, CMP, ADIFF #### [address] [address] ALP [Catalytic activity/Vol] 60 U/L Normal 40-135 [facility] Comment on above: Performed By: #### A CHARLEEN, GFR, PSA, A1C, CBC, LIPID, CMP, ADIFF #### [address] [address] ALT [Catalytic activity/Vol] 26 U/L Normal 16-63 [facility] Comment on above: Performed By: #### A CHARLEEN, GFR, PSA, A1C, CBC, LIPID, CMP, ADIFF #### [address] [address] AST [Catalytic activity/Vol] 14 U/L Normal 10-40 [facility] Comment on above: Performed By: #### A CHARLEEN, GFR, PSA, A1C, CBC, LIPID, CMP, ADIFF #### [address] [address] Bili Total 0.8 mg/dL Normal 0.2-1.0 [facility] Comment on above: Result Comment: Use of this assay is not recommended for patients undergoing treatment with eltrombopag due to the potential for falsely elevated results. Performed By: #### A CHARLEEN, GFR, PSA, A1C, CBC, LIPID, CMP, ADIFF #### [address] [address] BUN/Creatinine Ratio 14 ratio Normal 7-27 [facility] Comment on above: Performed By: #### A CHARLEEN, GFR, PSA, A1C, CBC, LIPID, CMP, ADIFF #### [address] [address] Calcium [Mass/Vol] 9.1 mg/dL Normal 8.4-10.2 [facility] Comment on above: Performed By: #### A CHARLEEN, GFR, PSA, A1C, CBC, LIPID, CMP, ADIFF #### [address] [address] Chloride [Moles/Vol] 103 mmol/L Normal 98-107 [facility] Comment on above: Performed By: #### A CHARLEEN, GFR, PSA, A1C, CBC, LIPID, CMP, ADIFF #### [address] [address] CO2 [Moles/Vol] 29 mmol/L Normal 22-29 [facility] Comment on above: Performed By: #### A CHARLEEN, GFR, PSA, A1C, CBC, LIPID, CMP, ADIFF #### [address] [address] Creatinine [Mass/Vol] 0.83 mg/dL Normal 0.70-1.30 [facility] Comment on above: Result Comment: Test ing performed on Orange[employer] Dimension EXL analyzer using a modified kinetic Zuleima technique. Performed By: #### A CHARLEEN, GFR, PSA, A1C, CBC, LIPID, CMP, ADIFF #### [address] [address] Electrolyte Balance 8.0 mEq/L Normal 4.0-15.0 [facility] Comment on above: Performed By: #### A CHARLEEN, GFR, PSA, A1C, CBC, LIPID, CMP, ADIFF #### [address] [address] Globulin 2.6 G/dL Normal [facility] Comment on above: Performed By: #### A CHARLEEN, GFR, PSA, A1C, CBC, LIPID, CMP, ADIFF #### [address] [address] Glucose [Mass/Vol] 172 mg/dL High 70-105 [facility] Comment on above: Performed By: #### A CHARLEEN, GFR, PSA, A1C, CBC, LIPID, CMP, ADIFF #### [address] [address] Potassium [Moles/Vol] 4.4 mmol/L Normal 3.5-5.1 [facility] Comment on above: Performed By: #### A CHARLEEN, GFR, PSA, A1C, CBC, LIPID, CMP, ADIFF #### [address] [address] [place], [place] [address] Sodium [Moles/Vol] 140 mmol/L Normal 136-145 [facility] Comment on above: Performed By: #### A CHARLEEN, GFR, PSA, A1C, CBC, LIPID, CMP, ADIFF #### [id number] [place], [place] [address] Total Protein 6.7 G/dL Normal 6.4-8.2 [facility] Comment on above: Performed By: #### A CHARLEEN, GFR, PSA, A1C, CBC, LIPID, CMP, ADIFF #### [id number] [place], [place] [address] Urea nitrogen [Mass/Vol] 12 mg/dL Normal 7-18 [facility] Comment on above: Performed By: #### A CHARLEEN, GFR, PSA, A1C, CBC, LIPID, CMP, ADIFF #### [id number] [place], [place] [address] LABORATORYOrdered By: SYSTEM SYSTEM on 06-14-2024 Albumin BCP dye [Mass/Vol] 4.1 G/dL Normal 3.5 - 5.0 G/dL AO ADM SS Albumin/Globulin [Mass ratio] 1.6 {ratio} Normal 1.1 - 2.5 ratio AO ADM SS ALP [Catalytic activity/Vol] 60 U/L Normal 40 - 135 U/L AO ADM SS ALT With P-5'-P [Catalytic activity/Vol] 26 U/L Normal 16 - 63 U/L AO ADM SS AST With P-5'-P [Catalytic activity/Vol] 14 U/L Normal 10 - 40 U/L AO ADM SS Basophils (Bld) [#/Vol] 0.0 103/mcL Normal 0.0 - 0.2 10^3/mcL AO Workflow SS Basophils/100 WBC (Bld) 0.7 % Normal 0.0 - 2.5 % AO Workflow SS Bilirubin [Mass/Vol] 0.8 mg/dL Normal 0.2 - 1 .0 mg/dL AO ADM SS Comment on above: Interpretive Data: U se of this assay is not recommended for patients undergoing treatment with eltrombopag due to the potential for falsely elevated results. Calcium [Mass/Vol] 9.1 mg/dL Normal 8.4 - 10. 2 mg/dL AO ADM SS Chloride [Moles/Vol] 103 mmol/L Normal 98 - 10 7 mmol/L AO ADM SS CO2 [Moles/Vol] 29 mmol/L Normal 22 - 29 mmol/L AO ADM SS Creatinine [Mass/Vol] 0.83 mg/dL Normal 0.70 - 1.30 mg/dL AO ADM SS Comment on above: Interpretive Data: T esting performed on Siemens Dimension EXL analyzer using a modified kinetic Zuleima technique. Electrolyte Balance 8.0 mEq/L Normal 4.0 - 15 .0 mEq/L AO ADM SS Eosinophil, Absolute 0.1 103/mcL Normal 0.0 - 0 .7 10^3/mcL AO Workflow SS Eosinophils/100 WBC (Bld) 1.8 % Normal 0.0 - 7.0 % AO Workflow SS Erythrocyte distribution width (RBC) [Ratio] 14.6 % Normal 11.5 - 15.5 % AO Workflow SS GFR/1.73 sq M.predicted among blacks MDRD (S/P/Bld) [Vol rate/Area] 117 ml/min/1.73sqm Invalid Interpretation Code AO Chemistry S Comment on above: Interpretive Data: GFR Population mean for , Non- Americans Ages 20-29 = 116 mL/min/1.73 sq.m. Ages 30-39 = 107 mL/min/1.73 sq.m. Ages 40-49 = 99 mL/min/1.73 sq.m. Ages 50-59 = 93 mL/min/1.73 sq.m. Ages 60-69 = 85 mL/min/1.73 sq.m. Ages 70+ = 75 mL/min/1.73 sq.m. Chronic Kidney Disease: Less than 60 mL/min/1.73 square meters End Stage Renal Disease: Less than 15 mL/min/1.73 square meters GFR/1.73 sq M.predicted among non-blacks MDRD (S/P/Bld) [Vol rate/Area] 97 ml/min/1.73sqm Invalid Interpretation Code AO Chemistry S Comment on above: Interpretive Data: GFR Population mean for , Non- Americans Ages 20-29 = 116 mL/min/1.73 sq.m. Ages 30-39 = 107 mL/min/1.73 sq.m. Ages 40-49 = 99 mL/min/1.73 sq.m. Ages 50-59 = 93 mL/min/1.73 sq.m. Ages 60-69 = 85 mL/min/1.73 sq.m. Ages 70+ = 75 mL/min/1.73 sq.m. Chronic Kidney Disease: Less than 60 mL/min/1.73 square meters End Stage Renal Disease: Less than 15 mL/min/1.73 square meters Globulin 2.6 G/dL Invalid Interpretation Code AO ADM SS Glucose [Mass/Vol] 183 mg/dL Invalid Interpretation Code AO Chemistry S Comment on above: Interpretive Data: E stimated average glucose (eAG) is a calculated value from Hemoglobin A1C and is event sales representative of the average blood glucose level in the last 2-3 month period. Normal range: less than 114 mg/dL Glucose [Mass/Vol] 172 mg/dL High 70 - 105 mg/dL AO ADM SS HbA1c (Bld) [Mass fraction] 8.0 % High 4.3 - 6.4 % AO ADM SS Hematocrit (Bld) [Volume fraction] 47.4 % Normal 40.0 - 52.0 % AO Workflow SS Hemoglobin (Bld) [Mass/Vol] 16.0 G/dL Normal 13.0 - 17.5 G/dL AO Workflow SS Lymphocytes (Bld) [#/Vol] 2.3 103/mcL Normal 0.9 - 4.3 10^3/mcL AO Workflow SS Lymphocytes/100 WBC (Bld) 33.2 % Normal 20.0 - 40.0 % AO Workflow SS MCH (RBC) [Entitic mass] 29.6 pg Normal 27.0 - 33.0 pg AO Workflow SS MCHC 33.7 G/dL Normal 32.0 - 36.0 G/dL AO Workflow SS MCV (RBC) [Entitic vol] 87.9 fL Normal 81.0 - 100.0 fL AO Workflow SS Monocytes (Bld) [#/Vol] 0.7 103/mcL Normal 0.1 - 1.4 10^3/mcL AO Workflow SS Monocytes/100 WBC (Bld) 10.4 % Normal 2.0 - 13.0 % AO Workflow SS Neutrophils (Bld) [#/Vol] 3.8 103/mcL Normal 2.3 - 8.1 10^3/mcL AO Workflow SS Neutrophils/100 WBC (Bld) 53.9 % Normal 50.0 - 75.0 % AO Workflow SS Platelet mean volume (Bld) [Entitic vol] 6.5 fL Normal 6.4 - 10.5 fL AO Workflow SS Platelets (Bld) [#/Vol] 266 103/mcL Normal 150 - 450 10^3/mcL AO Workflow SS Potassium [Moles/Vol] 4.4 mmol/L Normal 3.5 - 5.1 mmol/L AO ADM SS Prostate specific Ag [Mass/Vol] 0.89 ng/mL Normal 0.00 - 4.00 ng/mL AO ADM SS Protein [Mass/Vol] 6.7 G/dL Normal 6.4 - 8.2 G/dL AO ADM SS RBC (Bld) [#/Vol] 5.39 106/mcL Normal 4.50 - 6.0 0 10^6/mcL AO Workflow SS Sodium [Moles/Vol] 140 mmol/L Normal 136 - 145 mmol/L AO ADM SS Urea nitrogen [Mass/Vol] 12 mg/dL Normal 7 - 18 mg/dL AO ADM SS Urea nitrogen/Creatinine [Mass ratio] 14 ratio Normal 7 - 27 ratio AO ADM SS WBC (Bld) [#/Vol] 7.0 103/mcL Normal 4.5 - 10.8 10^3/mcL AO Workflow SS LABORATORYOrdered By: Donna Berry on 06-14-2024 Cholesterol [Mass/Vol] 158 mg/dL Normal 0 - 200 mg/dL AO ADM SS Comment on above: Interpretive Data: C holesterol Reference Interval: Less than 200 Desirable 200-239 Borderline high risk 240 and above High risk Cholesterol in HDL [Mass/Vol] 31 mg/dL Low 40 - 60 mg/dL AO ADM SS Cholesterol in LDL [Mass/Vol] 96 mg/dL Normal 0 - 130 mg/dL AO ADM SS Triglyceride [Mass/Vol] 157 mg/dL High 0 - 150 mg/dL AO ADM SS Comment on above: Interpretive Data: T riglyceride Reference Interval: Less than 150 Normal 150-199 Borderline high risk 200-499 High risk 500 or higher Very high risk LIPIDon 06-14-2024 Cholesterol [Mass/Vol] 158 mg/dL Normal 0-200 [facility] Comment on above: Result Comment: Chol esterol Reference Interval: Less than 200 Desirable 200-239 Borderline high risk 240 and above High risk Performed By: #### A CHRALEEN, GFR, PSA, A1C, CBC, LIPID, CMP, ADIFF #### [address] [address] Cholesterol in HDL [Mass/Vol] 31 mg/dL Low 40-60 [facility] Comment on above: Performed By: #### A CHARLEEN, GFR, PSA, A1C, CBC, LIPID, CMP, ADIFF #### [address] [address] Cholesterol in LDL [Mass/Vol] 96 mg/dL Normal 0-130 [facility] Comment on above: Performed By: #### A CHARLEEN, GFR, PSA, A1C, CBC, LIPID, CMP, ADIFF #### [address] [address] Triglyceride [Mass/Vol] 157 mg/dL High 0-150 [facility] Comment on above: Result Comment: Trig lyceride Reference Interval: Less than 150 Normal 150-199 Borderline high risk 200-499 High risk 500 or higher Very high risk Performed By: #### A CHARLEEN, GFR, PSA, A1C, CBC, LIPID, CMP, ADIFF #### [address] [address] PSAon 06-14-2024 Prostate Specific Antigen 0.89 ng/mL Normal 0.00-4.00 [facility] Comment on above: Performed By: #### A CHARLEEN, GFR, PSA, A1C, CBC, LIPID, CMP, ADIFF #### [address] [address] MALBRon 01-18-2024 U Creatinine 40.6 mg/dL Normal 39.0-259.0 [facility] ([place]) Comment on above: Performed By: #### A CHARLEEN, ADIFF, MORPH, CRP, CBC #### [address] [address] U Microalb 591 mcg/dL Normal [facility] ([place]) Comment on above: Performed By: #### A CHARLEEN, ADIFF, MORPH, CRP, CBC #### [address] [place] [address] U Ratio Alb/Cre 15 mcg/mg Normal 0-30 [facility] ([place]) Comment on above: Performed By: #### A CHARLEEN, ADIFF, MORPH, CRP, CBC #### [id number] [place], [place] [address] Inital Evaluation (1) - PTon 12-05-2023 Inital Evaluation (1) - PT [facility] Physical Therapy [facility] [address] [place] [address] / REHABILITATION SERVICES INITIAL EVALUATION MR#: [id number] Acct: [id number] Name: JHONNY VIRAMONTES Rep #: [id number] : 1970 53 From: Tere Alvarez DPT Referring Dr.: Hunter Navarro PA-C Status: REG R CR Insurance: [facility] [id number] SELF PAY INSURANCE Patient's Visit Information Visit Information Visit Information: JHONNY VIRAMONTES is a 53 year old M referred to Physical Therapy by Tan Navarro PA-C with a diagnosis of Right Shoulder Pain. Date of Evaluation: 12/05/23 Physical Therapist: Tere Alvarez DPT Visit Plan Frequency: 2x /Week Duration: 4 Weeks Plan: 1x a week for progression of HEP- ROM exercises for frozen shoulder and scapular strength/stabilization HEP Given IE: Cane flexion, cane abduction, cane IR, cane ER, table walk away, wall wash, towel IR stretch Subjective Subjective: Right shoulder- its been several months- frozen shoulder- with some tears going with the fibers of the muscle not across. Stepped in a hole and went down and landed on an outstretched arm. The pain is located in the anterior and top of the shoulder. Worst: 4/10 Agg: sleeping on it, sudden movement, lifting something up. Best: 0/10 Eases: nothing that he can think of. He had an injection on 11/22/23- its getting better. He is working on reaching higher and higher. He has had both an x-ray and MRI. The pain does radiate down to the forearm with the sudden movements. He describes the pain as sharp with the movement and its also dull pain most of the other times. Left hand dominate. No N/T in the hand. No LOWE, blurred vision or dizziness. 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 Sleep: better but still keeps him awake sometimes when it aches. He has not had PT on this shoulder. PMHx: DM, HTN, cholesterol, back surgery 4 years ago, knee surgery 5 years ago. Meds: metformin, liporpil, liporpi, jardiance, insulin injection, Objective Objective: Posture: forward head, rounded shoulders- can correct with verbal cues Gait: good arm swing and trunk rotation Palpation: tender along bicipital groove and AC joint ROM: Cervical: WNL, Shoulder: AROM: Flexion: 110 degrees Abd: 100 degrees IR: to outer pocket, ER: 10 degrees. AAROM: Flexion: 130 degrees, Abd: 130 degrees, IR: to belt line, ER: 20 degrees. Elbow/Wrist/Hand: WNL Strength: Scap: fair minus, Shoulder: at neutral: 4+/5 throughout without pain, elbow: 5/5 no pain, underwater roboticist: good Balance/Special Test Scores Quick DASH Score: 31.8175 Goals Goal 1:: Patient will be I with HEP and progression Goal Time Frame: 6-8 Weeks Goal 2:: Patient will demo full AROM of the right shoulder Goal Time Frame: 6-8 Weeks Goal 3:: Patient will maintain proper posture t/o tx session to demo increased scap s/s Goal Time Frame: 6-8 Weeks Goal 4:: Patient will report 80% improvement Goal Time Frame: 6-8 Weeks Rehabilitation Potential Physical Therapy Diagnosis: Patient presents with hypomobility- he has decreased shoulder ROM, scapular and UE strength/stabilization and muscular endurance leading to increased pain with ADLs Rehabilitation Potential: Good Anticipated Interventions Patient/Client Instruction: Educate patient on: Benefits of Fitness Program Therapeutic Exercise to Include: Strength training, Endurance training, Coordination, Agility training, Body mechanics, Postural training, Flexibilty training, Neuromotor development, Passive ROM, Active ROM, Dynamic Lumbar Stabilization and Scapular Strength/Stabilization For the Purpose of:: To improve muscle performance and motor function Manual Therapy Techniques to Include: Mobilization, Passive ROM and Soft tissue mobilization For the Purpose of:: To improve ability to perform ADL's TENS: Yes Cryotherapy (ice pack, ice massage): Yes Thermo therapy (hot pack): Yes Ultrasound (thermal/non thermal): Yes Text: Thank you for the opportunity to evaluate your patient. For Medicare and Medicare HMO plans, please review the plan of care and approve it. It will need to be FAXED BACK to us at [phone] for Medicare purposes. For Medicare only, by signing this I certify the plan of care. Please let me know if there are questions or concerns regarding this plan of care. Physician Signature: Date: 12/05/23 1849 CC: CONSTANZA Keen; LIZBET Navarro ELR Signed Normal [facility] .Auto Diffon 11-07-2023 Basophil, Absolute 0.1 10 3/mcL Normal 0.0-0.2 [facility] ([place]) Comment on above: Performed By: #### A CHARLEEN, ADIFF, MORPH, CRP, CBC #### [address] [address] Basophils/100 WBC (Bld) 1.1 % Normal 0.0-2.5 [facility] ([place]) Comment on above: Performed By: #### A CHARLEEN, ADIFF, MORPH, CRP, CBC #### [address] [address] Eosinophil, Absolute 0.0 10 3/mcL Normal 0.0-0.4 [facility] ([place]) Comment on above: Performed By: #### A CHARLEEN, ADIFF, MORPH, CRP, CBC #### [address] [address] Eosinophils/100 WBC (Bld) 0.2 % Normal 0.0-7.0 [facility] ([place]) Comment on above: Performed By: #### A CHARLEEN, ADIFF, MORPH, CRP, CBC #### [address] [address] Lymphocyte, Absolute 2.3 10 3/mcL Normal 0.8-3.9 [facility] ([place]) Comment on above: Performed By: #### A CHARLEEN, ADIFF, MORPH, CRP, CBC #### [address] [address] Lymphocytes/100 WBC (Bld) 27.2 % Normal 10.0-50.0 [facility] ([place]) Comment on above: Performed By: #### A CHARLEEN, ADIFF, MORPH, CRP, CBC #### [address] [address] Monocyte, Absolute 0.6 10 3/mcL Normal 0.2-1.0 [facility] ([place]) Comment on above: Performed By: #### A CHARLEEN, ADIFF, MORPH, CRP, CBC #### [address] [address] Monocytes/100 WBC (Bld) 7.1 % Normal 1.7-13.0 [facility] ([place]) Comment on above: Performed By: #### A CHARLEEN, ADIFF, MORPH, CRP, CBC #### [address] [address] Neutrophils/100 WBC (Bld) 64.4 % Normal 37.0-80.0 [facility] ([place]) Comment on above: Performed By: #### A CHARLEEN, ADIFF, MORPH, CRP, CBC #### [address] [address] .Morphon 11-07-2023 Platelet Estimate Normal Normal [facility] ([place]) Comment on above: Performed By: #### A CHARLEEN, ADIFF, MORPH, CRP, CBC #### [address] [address] .NEUABSon 11-07-2023 Neutrophil, Absolute 5.5 10 3/mcL Normal 2.9-6.2 [facility] ([place]) Comment on above: Performed By: #### A CHARLEEN, ADIFF, MORPH, CRP, CBC #### [id number] CBCon 11-07-2023 Erythrocyte distribution width (RBC) [Ratio] 14.6 % High 11.5-14.5 [facility] ([place]) Comment on above: Performed By: #### A CHARLEEN, ADIFF, MORPH, CRP, CBC #### [place] [address] Hematocrit (Bld) [Volume fraction] 48.3 % Normal 42.0-52.0 [facility] ([place]) Comment on above: Performed By: #### A CHARLEEN, ADIFF, MORPH, CRP, CBC #### [place] [address] Hgb 16.6 G/dL Normal 14.0-18.0 [facility] ([place]) Comment on above: Performed By: #### A CHARLEEN, ADIFF, MORPH, CRP, CBC #### [id number] MCH (RBC) [Entitic mass] 30.0 pg Normal 27.0-31.2 [facility] ([place]) Comment on above: Performed By: #### A CHARLEEN, ADIFF, MORPH, CRP, CBC #### [place] [address] MCHC 34.3 G/dL Normal 31.8-35.4 [facility] ([place]) Comment on above: Performed By: #### A CHARLEEN, ADIFF, MORPH, CRP, CBC #### [place] [id number] MCV (RBC) [Entitic vol] 87.5 fL Normal 80.0-94.0 [facility] ([place]) Comment on above: Performed By: #### A CHARLEEN, ADIFF, MORPH, CRP, CBC #### [id number] Platelet 334 10 3/mcL Normal 130-400 [facility] ([place]) Comment on above: Performed By: #### A CHARLEEN, ADIFF, MORPH, CRP, CBC #### [place] [address] Platelet mean volume (Bld) [Entitic vol] 6.7 fL Low 7.4-10.4 [facility] ([place]) Comment on above: Performed By: #### A CHARLEEN, ADIFF, MORPH, CRP, CBC #### [address] [address] RBC 5.52 10 6/mcL Normal 4.04-6.13 [facility] ([place]) Comment on above: Performed By: #### A CHARLEEN, ADIFF, MORPH, CRP, CBC #### [place] [address] WBC 8.6 10 3/mcL Normal 4.6-10.8 [facility] ([place]) Comment on above: Performed By: #### A CHARLEEN, ADIFF, MORPH, CRP, CBC #### [address] [address] CRPon 11-07-2023 C-Reactive Protein 0.1 mg/dL Normal 0.0-0.3 [facility] ([place]) Comment on above: Performed By: #### A CHARLEEN, ADIFF, MORPH, CRP, CBC #### [address] [address] LABORATORYOrdered By: SYSTEM SYSTEM on 11-07-2023 Basophil, Absolute 0.1 103/mcL Normal 0.0 - 0.2 10^3/mcL AO Workflow SS Basophils/100 WBC (Bld) 1.1 % Normal 0.0 - 2.5 % AO Workflow SS CRP [Mass/Vol] 0.1 mg/dL Normal 0.0 - 0.3 mg/dL AO ADM SS Eosinophil, Absolute 0.0 103/mcL Normal 0.0 - 0 .4 10^3/mcL AO Workflow SS Eosinophils/100 WBC (Bld) 0.2 % Normal 0.0 - 7.0 % AO Workflow SS Erythrocyte distribution width (RBC) [Ratio] 14.6 % High 11.5 - 14.5 % AO Workflow SS Hematocrit (Bld) [Volume fraction] 48.3 % Normal 42.0 - 52.0 % AO Workflow SS Hemoglobin (Bld) [Mass/Vol] 16.6 G/dL Normal 14.0 - 18.0 G/dL AO Workflow SS Lymphocyte, Absolute 2.3 103/mcL Normal 0.8 - 3 .9 10^3/mcL AO Workflow SS Lymphocytes/100 WBC (Bld) 27.2 % Normal 10.0 - 50.0 % AO Workflow SS MCH (RBC) [Entitic mass] 30.0 pg Normal 27.0 - 31.2 pg AO Workflow SS MCHC 34.3 G/dL Normal 31.8 - 35.4 G/dL AO Workflow SS MCV (RBC) [Entitic vol] 87.5 fL Normal 80.0 - 94.0 fL AO Workflow SS Monocyte, Absolute 0.6 103/mcL Normal 0.2 - 1.0 10^3/mcL AO Workflow SS Monocytes/100 WBC (Bld) 7.1 % Normal 1.7 - 13.0 % AO Workflow SS Neutrophil, Absolute 5.5 103/mcL Normal 2.9 - 6 .2 10^3/mcL AO Workflow SS Neutrophils/100 WBC (Bld) 64.4 % Normal 37.0 - 80.0 % AO Workflow SS Platelet mean volume (Bld) [Entitic vol] 6.7 fL Low 7.4 - 10.4 fL AO Workflow SS Platelets (Bld) [#/Vol] 334 103/mcL Normal 130 - 400 10^3/mcL AO Workflow SS RBC (Bld) [#/Vol] 5.52 106/mcL Normal 4.04 - 6.1 3 10^6/mcL AO Workflow SS WBC (Bld) [#/Vol] 8.6 103/mcL Normal 4.6 - 10.8 10^3/mcL AO Workflow SS LABORATORYOrdered By: Kristopher foss on 11-07-2023 Platelet Estimate Normal (11/07/23 9:02 AM) Normal AO Hematology S Inital Evaluation (1) - PTon 09-03-2023 Inital Evaluation (1) - PT [facility] Physical [facility] [address] [place] [address] [address] [place] [address] / REHABILITATION SERVICES INITIAL EVALUATION MR#: [id number] Acct: [id number] Name: JHONNY VIRAMONTES Rep #: [id number] : 1970 53 From: George Richmond DPT Referring : OUT OF TOWN DOCTOR Status: REG R CR Insurance: [facility] [id number] SELF PAY INSURANCE Patient's Visit Information Visit Information Visit Information: JHONNY VIRAMONTES is a 53 year old M referred to Physical Therapy by KRISTEN CALVERT with a diagnosis of lumbar radiculopathy and DDD of lumbar spine. Date of Evaluation: 09/03/23 Physical Therapist: George Richmond DPT Visit Plan Frequency: 1x/Week Duration: 6 Weeks Plan: Pt. to start with REIL, prone progression. Due to his lower symptoms I want him to work on REIL frequently progressing back into daily activities as tolerated. Pt. to trial on own and call back if needed. Subjective Subjective: Pt. is here today for his initial evaluation with diagnosis of lumbar radiculopathy and DDD of lumbar spine. Pt. reports carrying objects out in the field and had some back pain the following. He has a history of lower lumbar surgery. Sounds like a discectomy. Pt. reports a few weeks ago doing some work, no specific mech of injury, but the next morning having high levels of back and leg pain. He is doing much better than he was previously, mentioning that he even thought about canceling. He does have some soreness still, but only 1-2/10 pain on L side. Pt. denies NT, no changes in B/B and no myotomal weakness noted. Pt. did take a steroid and has been having some relief. He is to go back to physician if not improving. Pt. is hopeful to get back to all work and recreational activities without limitations. Pain Lumbar spine: Pain Intensity (Out of 10): 2 Objective Objective: POSTURE: Pt. has slight flexed posture, normal iliac crest heights. PALPATION: Pt. has mild tenderness along lumbar spinae muscle groups, but not severe. NEURO: normal sensation and normal DTR of BLEs. ROM: LUMBAR SPINE: flexion min loss mild increase NW, ext min loss decrease NB, SB min loss bilat NE, rotation min/nil loss NE bilat. Mild tightness in BHS. MMT: Pt. has 5/5 distal LE strength, 4+/5 L hip strength, 5/5 R hip strength. GAIT: Pt. has slightly methodical gait pattern. Slight decrease in arm swing. STAIRS: fairly normal pattern. Slight increase in use of UEs on railings. Special Tests L/S Slump test left side: Negative L/S Slump test right side: Negative L/S Left Straight Leg Raise: Negative L/S Right Straight Leg Raise: Negative Lumbar Standing: Flexion - Mechanical Response: No effect Lumbar Standing: Flexion - Symptoms During Testing: Increases Lumbar Standing: Flexion - Symptoms After Testing: No worse Lumbar Standing: Extension - Mechanical Response: No effect Lumbar Standing: Extension - Symptoms During Testing: Decreases Lumbar Standing: Extension - Symptoms After Testing: No better Lumbar Standing: Right Side Glides - Mechanical Response: No effect Lumbar Standing: Right Side [place] - Symptoms During Testing: No effect Lumbar Standing: Right Side [place] - Symptoms After Testing: No effect Lumbar Standing: Left Side [place] - Mechanical Response: No effect Lumbar Standing: Left Side [place] - Symptoms During Testing: No effect Lumbar Standing: Left Side [place] - Symptoms After Testing: No effect Lumbar Lying: Flexion - Mechanical Response: No effect Lumbar Lying: Flexion - Symptoms During Testing: No effect Lumbar Lying: Flexion - Symptoms After Testing: No effect Lumbar Lying: Extension - Mechanical Response: No effect Lumbar Lying: Extension - Symptoms During Testing: Increases Lumbar Lying: Extension - Symptoms After Testing: No worse Balance/Special Test Scores Oswestry Low Back Score: 8 Goals Goal 1:: LTG: pt. to be I with HEP. Goal Time Frame: 2-4 Weeks Goal 2:: LTG: Pt. to have full lumbar ROM without increase in symptoms. Goal Time Frame: 2-4 Weeks Goal 3:: LTG: Pt. to complete all work related activities without increase in symptoms. Goal Time Frame: 4-6 Weeks Goal 4:: STG: Pt. to be able to sleep throughout the night without increase in symptoms. Goal Time Frame: 2 Weeks Rehabilitation Potential Physical Therapy Diagnosis: Pt. has signs and symptoms consistent with lumbar radiculopathy and DDD of lumbar spine. Pt. seem to have a directional preference for extension. His symptoms have already started to resolve. I did talk to him about disc anatomy and risk for re injury. Pt. is doing better, I would like him to work on extension progression and then follow back up. Rehabilitation Potential: Excellent Anticipated Interventions Patient/Client Instruction: Educate patient on: Condition, Plan of Care, Risk Factors and Benefits of Fitness Program For the Purpose (more content not included)... [facility] 06-29-2023 U Creatinine 41.7 mg/dL Normal 39.0-259.0 [facility] ([place]) Comment on above: Performed By: #### M ALBR #### [address] [address] U Microalb 542 mcg/dL Normal [facility] ([place]) Comment on above: Performed By: #### M ALBR #### [address] [address] U Ratio Alb/Cre 13 mcg/mg Normal 0-30 [facility] ([place]) Comment on above: Performed By: #### M ALBR #### [address] [address] .Auto Diffon 06-23-2023 Basophil, Absolute 0.1 10 3/mcL Normal 0.0-0.2 [facility] ([place]) Comment on above: Performed By: #### G FR, LIPID, CMP, ANEU, ADIFF, CBC #### [address] [address] Basophils/100 WBC (Bld) 0.8 % Normal 0.0-2.5 [facility] ([place]) Comment on above: Performed By: #### G FR, LIPID, CMP, ANEU, ADIFF, CBC #### [address] [address] Eosinophil, Absolute 0.1 10 3/mcL Normal 0.0-0.4 [facility] ([place]) Comment on above: Performed By: #### G FR, LIPID, CMP, ANEU, ADIFF, CBC #### [address] [address] Eosinophils/100 WBC (Bld) 1.9 % Normal 0.0-7.0 [facility] ([place]) Comment on above: Performed By: #### G FR, LIPID, CMP, ANEU, ADIFF, CBC #### [address] [address] Lymphocyte, Absolute 2.1 10 3/mcL Normal 0.8-3.9 [facility] ([place]) Comment on above: Performed By: #### G FR, LIPID, CMP, ANEU, ADIFF, CBC #### [address] [address] Lymphocytes/100 WBC (Bld) 31.2 % Normal 10.0-50.0 [facility] ([place]) Comment on above: Performed By: #### G FR, LIPID, CMP, ANEU, ADIFF, CBC #### [address] [address] Monocyte, Absolute 0.8 10 3/mcL Normal 0.2-1.0 [facility] ([place] Comment on above: Performed By: #### G FR, LIPID, CMP, ANEU, ADIFF, CBC #### [address] [address] Monocytes/100 WBC (Bld) 11.5 % Normal 1.7-13.0 [facility] ([place]) Comment on above: Performed By: #### G FR, LIPID, CMP, ANEU, ADIFF, CBC #### [address] [address] Neutrophils/100 WBC (Bld) 54.6 % Normal 37.0-80.0 [facility] ([place]) Comment on above: Performed By: #### G FR, LIPID, CMP, ANEU, ADIFF, CBC #### [address] [address] .GFRon 06-23-2023 GFR Non- 105 ml/min/1.73sqm Normal [facility] ([place]) Comment on above: Result Comment: GFR Population mean for , Non- Americans Ages 20-29 = 116 mL/min/1.73 sq.m. Ages 30-39 = 107 mL/min/1.73 sq.m. Ages 40-49 = 99 mL/min/1.73 sq.m. Ages 50-59 = 93 mL/min/1.73 sq.m. Ages 60-69 = 85 mL/min/1.73 sq.m. Ages 70+ = 75 mL/min/1.73 sq.m. Chronic Kidney Disease: Less than 60 mL/min/1.73 square meters End Stage Renal Disease: Less than 15 mL/min/1.73 square meters Performed By: #### A CHARLEEN, ADIFF, MORPH, CRP, CBC #### [address] [address] GFR 127 ml/min/1.73sqm Normal [facility] ([place]) Comment on above: Result Comment: GFR Population mean for , Non- Americans Ages 20-29 = 116 mL/min/1.73 sq.m. Ages 30-39 = 107 mL/min/1.73 sq.m. Ages 40-49 = 99 mL/min/1.73 sq.m. Ages 50-59 = 93 mL/min/1.73 sq.m. Ages 60-69 = 85 mL/min/1.73 sq.m. Ages 70+ = 75 mL/min/1.73 sq.m. Chronic Kidney Disease: Less than 60 mL/min/1.73 square meters End Stage Renal Disease: Less than 15 mL/min/1.73 square meters Performed By: #### A CHARLEEN, ADIFF, MORPH, CRP, CBC #### [address] [address] .NEUABSon 06-23-2023 Neutrophil, Absolute 3.7 10 3/mcL Normal 2.9-6.2 [facility] ([place] Comment on above: Performed By: #### G FR, LIPID, CMP, ANEU, ADIFF, CBC #### [address] [address] CBCon 06-23-2023 Erythrocyte distribution width (RBC) [Ratio] 13.2 % Normal 11.5-14.5 [facility] ([place] Comment on above: Performed By: #### G FR, LIPID, CMP, ANEU, ADIFF, CBC #### [address] [address] Hematocrit (Bld) [Volume fraction] 44.7 % Normal 42.0-52.0 [facility] ([place] Comment on above: Performed By: #### G FR, LIPID, CMP, ANEU, ADIFF, CBC #### [address] [address] Hgb 15.4 G/dL Normal 14.0-18.0 [facility] ([place] Comment on above: Performed By: #### G FR, LIPID, CMP, ANEU, ADIFF, CBC #### [place] [id number] MCH (RBC) [Entitic mass] 30.5 pg Normal 27.0-31.2 [facility] ([place] Comment on above: Performed By: #### G FR, LIPID, CMP, ANEU, ADIFF, CBC #### [place] [address] MCHC 34.4 G/dL Normal 31.8-35.4 [facility] ([place] Comment on above: Performed By: #### G FR, LIPID, CMP, ANEU, ADIFF, CBC #### [place] [address] MCV (RBC) [Entitic vol] 88.7 fL Normal 80.0-94.0 [facility] ([place] Comment on above: Performed By: #### G FR, LIPID, CMP, ANEU, ADIFF, CBC #### [place] [address] Platelet 292 10 3/mcL Normal 130-400 [facility] ([place] Comment on above: Performed By: #### G FR, LIPID, CMP, ANEU, ADIFF, CBC #### [place] [address] Platelet mean volume (Bld) [Entitic vol] 7.0 fL Low 7.4-10.4 [facility] ([place] Comment on above: Performed By: #### G FR, LIPID, CMP, ANEU, ADIFF, CBC #### [place] [address] RBC 5.04 10 6/mcL Normal 4.04-6.13 [facility] ([place] Comment on above: Performed By: #### G FR, LIPID, CMP, ANEU, ADIFF, CBC #### [address] [address] WBC 6.8 10 3/mcL Normal 4.6-10.8 [facility] ([place] Comment on above: Performed By: #### G FR, LIPID, CMP, ANEU, ADIFF, CBC #### [address] [address] CMPon 06-23-2023 Albumin Level 4.0 G/dL Normal 3.5-5.0 [facility] ([place] Comment on above: Performed By: #### G FR, LIPID, CMP, ANEU, ADIFF, CBC #### [address] [address] Albumin/Globulin [Mass ratio] 1.4 {ratio} Normal 1.1-2.5 [facility] ([place] Comment on above: Performed By: #### G FR, LIPID, CMP, ANEU, ADIFF, CBC #### [address] [address] ALP [Catalytic activity/Vol] 74 U/L Normal 40-135 [facility] ([place] Comment on above: Performed By: #### G FR, LIPID, CMP, ANEU, ADIFF, CBC #### [address] [address] ALT [Catalytic activity/Vol] 35 U/L Normal 16-63 [facility] ([place] Comment on above: Performed By: #### G FR, LIPID, CMP, ANEU, ADIFF, CBC #### [address] [address] AST [Catalytic activity/Vol] 13 U/L Normal 10-40 [facility] ([place] Comment on above: Performed By: #### G FR, LIPID, CMP, ANEU, ADIFF, CBC #### [address] [address] Bili Total 0.3 mg/dL Normal 0.2-1.0 [facility] ([place]) Comment on above: Result Comment: Use of this assay is not recommended for patients undergoing treatment with eltrombopag due to the potential for falsely elevated results. Performed By: #### G FR, LIPID, CMP, ANEU, ADIFF, CBC #### [address] [address] BUN/Creatinine Ratio 14 ratio Normal 7-27 [facility] ([place] Comment on above: Performed By: #### G FR, LIPID, CMP, ANEU, ADIFF, CBC #### [address] [address] Calcium [Mass/Vol] 9.3 mg/dL Normal 8.4-10.2 [facility] ([place]) Comment on above: Performed By: #### G FR, LIPID, CMP, ANEU, ADIFF, CBC #### [address] [address] Chloride [Moles/Vol] 108 mmol/L High 98-107 [facility] ([place] Comment on above: Performed By: #### G FR, LIPID, CMP, ANEU, ADIFF, CBC #### [place] [address] CO2 [Moles/Vol] 26 mmol/L Normal 22-29 [facility] ([place] Comment on above: Performed By: #### G FR, LIPID, CMP, ANEU, ADIFF, CBC #### [place] [address] Creatinine [Mass/Vol] 0.78 mg/dL Normal 0.70-1.30 Counts include 234 beds at the [facility] ([place]) Comment on above: Performed By: #### G FR, LIPID, CMP, ANEU, ADIFF, CBC #### [address] [address] Electrolyte Balance 11.0 mEq/L Normal 4.0-15.0 [facility] ([place]) Comment on above: Performed By: #### G FR, LIPID, CMP, ANEU, ADIFF, CBC #### [place] [address] Globulin 2.9 G/dL Normal [facility] ([place] Comment on above: Performed By: #### G FR, LIPID, CMP, ANEU, ADIFF, CBC #### [place] [address] Glucose [Mass/Vol] 179 mg/dL High 70-105 [facility] ([place] Comment on above: Performed By: #### G FR, LIPID, CMP, ANEU, ADIFF, CBC #### [address] [address] Potassium [Moles/Vol] 4.8 mmol/L Normal 3.5-5.1 Counts include 234 beds at the [facility] ([place] Comment on above: Performed By: #### G FR, LIPID, CMP, ANEU, ADIFF, CBC #### [address] [address] Sodium [Moles/Vol] 145 mmol/L Normal 136-145 [facility] ([place] Comment on above: Performed By: #### G FR, LIPID, CMP, ANEU, ADIFF, CBC #### [address] [address] Total Protein 6.9 G/dL Normal 6.4-8.2 [facility] ([place] Comment on above: Performed By: #### G FR, LIPID, CMP, ANEU, ADIFF, CBC #### [address] [address] Urea nitrogen [Mass/Vol] 11 mg/dL Normal 7-18 [facility] ([place] Comment on above: Performed By: #### G FR, LIPID, CMP, ANEU, ADIFF, CBC #### [address] [address] LIPIDon 06-23-2023 Cholesterol [Mass/Vol] 155 mg/dL Normal 0-200 [facility] ([place] Comment on above: Result Comment: Chol esterol Reference Interval: Less than 200 Desirable 200-239 Borderline high risk 240 and above High risk Performed By: #### A CHARLEEN, ADIFF, MORPH, CRP, CBC #### [address] [address] Cholesterol in HDL [Mass/Vol] 32 mg/dL Low 40-60 [facility] ([place] Comment on above: Performed By: #### A CHARLEEN, ADIFF, MORPH, CRP, CBC #### [facility] [address] [place], [place] [address] Cholesterol in LDL [Mass/Vol] 100 mg/dL Normal 0-130 [facility] ([place] Comment on above: Performed By: #### A CHARLEEN, ADIFF, MORPH, CRP, CBC #### [facility] [address] [place], [place] [address] Triglyceride [Mass/Vol] 115 mg/dL Normal 0-150 [facility] ([place] Comment on above: Result Comment: Trig lyceride Reference Interval: Less than 150 Normal 150-199 Borderline high risk 200-499 High risk 500 or higher Very high risk Performed By: #### A CHARLEEN, ADIFF, MORPH, CRP, CBC #### [place] [id number] [place], [place] [address] LABORATORYOrdered By: Ciro Marte on 10-11-2022 Blood Glucose Frequency Other: 08/01 [facility] Work Phone: LABORATORYOrdered By: Naveed Gann on 09-01-2022 tTG IgA IA Qn (S) 1 Invalid Interpretation Code <=20.0 AH Auto Viro/Sero SS LABORATORYOrdered By: SYSTEM SYSTEM on 09-01-2022 C peptide [Mass/Vol] 4.07 ng/mL Invalid Interpretation Code 0.81 - 3.85 ng/mL AH ADM SS LABORATORYOrdered By: SYSTEM SYSTEM on 07-20-2022 Albumin BCP dye [Mass/Vol] 4.3 G/dL Invalid Interpretation Code 3.5 - 5.0 G/dL AO ADM SS Albumin/Globulin [Mass ratio] 1.5 {ratio} Invalid Interpretation Code 1.1 - 2.5 ratio AO ADM SS ALP [Catalytic activity/Vol] 74 U/L Invalid Interpretation Code 40 - 135 U/L AO ADM SS ALT With P-5'-P [Catalytic activity/Vol] 38 U/L Invalid Interpretation Code 16 - 63 U/L AO ADM SS AST With P-5'-P [Catalytic activity/Vol] 22 U/L Invalid Interpretation Code 10 - 40 U/L AO ADM SS Bilirubin [Mass/Vol] 0.3 mg/dL Invalid Interpretation Code 0.2 - 1.0 mg/dL AO ADM SS Calcium [Mass/Vol] 9.4 mg/dL Invalid Interpretation Code 8.4 - 10.2 mg/dL AO ADM SS Chloride [Moles/Vol] 103 mmol/L Invalid Interpretation Code 98 - 107 mmol/L AO ADM SS CO2 [Moles/Vol] 27 mmol/L Invalid Interpretation Code 22 - 29 mmol/L AO ADM SS Creatinine [Mass/Vol] 0.87 mg/dL Invalid Interpretation Code 0.70 - 1.30 mg/dL AO ADM SS Electrolyte Balance 10.0 mEq/L Invalid Interpretation Code 4.0 - 15.0 mEq/L AO ADM SS GFR 112 ml/min/1.73sqm Invalid Interpretation Code AO Chemistry S GFR Non- 92 ml/min/1.73sqm Invalid Interpretation Code AO Chemistry S Globulin 2.8 G/dL Invalid Interpretation Code AO ADM SS Glucose [Mass/Vol] 104 mg/dL Invalid Interpretation Code 70 - 105 mg/dL AO ADM SS Potassium [Moles/Vol] 4.4 mmol/L Invalid Interpretation Code 3.5 - 5.1 mmol/L AO ADM SS Protein [Mass/Vol] 7.1 G/dL Invalid Interpretation Code 6.4 - 8.2 G/dL AO ADM SS Sodium [Moles/Vol] 140 mmol/L Invalid Interpretation Code 136 - 145 mmol/L AO ADM SS Urea nitrogen [Mass/Vol] 21 mg/dL Invalid Interpretation Code 7 - 18 mg/dL AO ADM SS Urea nitrogen/Creatinine [Mass ratio] 24 ratio Invalid Interpretation Code 7 - 27 ratio AO ADM SS LABORATORYOrdered By: Carolina Oliver on 07-20-2022 Basophil, Absolute 0.0 103/mcL Invalid Interpretation Code 0.0 - 0.2 10^3/mcL AO Workflow SS Basophils/100 WBC (Bld) 0.4 % Invalid Interpretation Code 0.0 - 2.5 % AO Workflow SS Eosinophil, Absolute 0.1 103/mcL Invalid Interpretation Code 0.0 - 0.4 10^3/mcL AO Workflow SS Eosinophils/100 WBC (Bld) 1.1 % Invalid Interpretation Code 0.0 - 7.0 % AO Workflow SS Erythrocyte distribution width (RBC) [Ratio] 14.0 % Invalid Interpretation Code 11.5 - 14.5 % AO Workflow SS Hematocrit (Bld) [Volume fraction] 46.2 % Invalid Interpretation Code 42.0 - 52.0 % AO Workflow SS Hemoglobin (Bld) [Mass/Vol] 15.7 G/dL Invalid Interpretation Code 14.0 - 18.0 G/dL AO Workflow SS Lymphocyte, Absolute 3.4 103/mcL Invalid Interpretation Code 0.8 - 3.9 10^3/mcL AO Workflow SS Lymphocytes/100 WBC (Bld) 34.4 % Invalid Interpretation Code 10.0 - 50.0 % AO Workflow SS MCH (RBC) [Entitic mass] 29.9 pg Invalid Interpretation Code 27.0 - 31.2 pg AO Workflow SS MCHC 33.9 G/dL Invalid Interpretation Code 31.8 - 35.4 G/dL AO Workflow SS MCV (RBC) [Entitic vol] 88.1 fL Invalid Interpretation Code 80.0 - 94.0 fL AO Workflow SS Monocyte, Absolute 1.0 103/mcL Invalid Interpretation Code 0.2 - 1.0 10^3/mcL AO Workflow SS Monocytes/100 WBC (Bld) 9.8 % Invalid Interpretation Code 1.7 - 13.0 % AO Workflow SS Neutrophil, Absolute 5.4 103/mcL Invalid Interpretation Code 2.9 - 6.2 10^3/mcL AO Workflow SS Neutrophils/100 WBC (Bld) 54.3 % Invalid Interpretation Code 37.0 - 80.0 % AO Workflow SS Platelet mean volume (Bld) [Entitic vol] 7.2 fL Invalid Interpretation Code 7.4 - 10.4 fL AO Workflow SS Platelets (Bld) [#/Vol] 280 103/mcL Invalid Interpretation Code 130 - 400 10^3/mcL AO Workflow SS RBC (Bld) [#/Vol] 5.24 106/mcL Invalid Interpretation Code 4.04 - 6.13 10^6/mcL AO Workflow SS WBC (Bld) [#/Vol] 9.9 103/mcL Invalid Interpretation Code 4.6 - 10.8 10^3/mcL AO Workflow SS LABORATORYOrdered By: Krystyna Taylor on 07-20-2022 Cholesterol [Mass/Vol] 157 mg/dL Invalid Interpretation Code 0 - 200 mg/dL AO ADM SS Cholesterol in HDL [Mass/Vol] 30 mg/dL Invalid Interpretation Code 40 - 60 mg/dL AO ADM SS Cholesterol in LDL [Mass/Vol] 72 mg/dL Invalid Interpretation Code 0 - 130 mg/dL AO ADM SS Triglyceride [Mass/Vol] 273 mg/dL Invalid Interpretation Code 0 - 150 mg/dL AO ADM SS LABORATORYOrdered By: Naveed Gann on 02-10-2022 C. trachomatis DNA DIYA+probe Ql (Unsp spec) Negative (02/10/22 10:38 AM) Invalid Interpretation Code Negative AH Auto Viro/Sero SS C. trachomatis DNA DIYA+probe Ql (Unsp spec) C. trachomatis DNA not detected. Specimen is presumptive negative forC. trachomatis.A negative result does not preclude C. trachomatis infection becauseresults depend on adequate specimen collection, absence of inhibitors,and sufficient DNA to be detected. Invalid Interpretation Code See CT Interp N AH Auto Viro/Sero SS N. gonorrhoeae DNA DIYA+probe Ql (Unsp spec) Negative (02/10/22 10:38 AM) Invalid Interpretation Code Negative AH Auto Viro/Sero SS N. gonorrhoeae DNA DIYA+probe Ql (Unsp spec) N. gonorrhoeae DNA not detected. Specimen is presumptive negative forN. gonorrhoeae. A negative result does not preclude Neisseria gonorrhoeaeinfection because results depend on adequate specimen collection, absenceof inhibitors, and sufficient DNA to be detected. Invalid Interpretation Code See NG Interp N Auto Viro/Sero SS Laboratory - Specimen inform ationOrdered By: Naveed Gann on 02-10-2022 Specimen source Nom (Unsp spec) Urine (02/10/22 10:38 AM) Invalid Interpretation Code Auto Viro/Sero SS No Panel Informationon 02-10 Culture Urine <10,000 cfu/ml. No Significant growth. Sensitivity not indicated. [facility] Work Phone: Culture Wound Aerobe Moderate normal ski n wallace present. Sensitivity testing not indicated. Neisseria gonorrhoeae: Negative [facility] Work Phone: GS 1+ Epithelial cells Rare Gram Negative Rods Rare Gram Positive Cocci [facility] Work Phone: LABORATORYOrdered By: Carolina Oliver on 09-02-2021 Albumin BCP dye [Mass/Vol] 4.3 G/dL Invalid Interpretation Code 3.5 - 5.0 G/dL AO ADM SS Albumin/Globulin [Mass ratio] 1.6 {ratio} Invalid Interpretation Code 1.1 - 2.5 ratio AO ADM SS ALP [Catalytic activity/Vol] 72 U/L Invalid Interpretation Code 40 - 135 U/L AO ADM SS ALT With P-5'-P [Catalytic activity/Vol] 34 U/L Invalid Interpretation Code 16 - 63 U/L AO ADM SS AST With P-5'-P [Catalytic activity/Vol] 16 U/L Invalid Interpretation Code 10 - 40 U/L AO ADM SS Bilirubin [Mass/Vol] 0.4 mg/dL Invalid Interpretation Code 0.2 - 1.0 mg/dL AO ADM SS Calcium [Mass/Vol] 9.0 mg/dL Invalid Interpretation Code 8.4 - 10.2 mg/dL AO ADM SS Chloride [Moles/Vol] 103 mmol/L Invalid Interpretation Code 98 - 107 mmol/L AO ADM SS Cholesterol [Mass/Vol] 161 mg/dL Invalid Interpretation Code 0 - 200 mg/dL AO ADM SS Cholesterol in HDL [Mass/Vol] 30 mg/dL Invalid Interpretation Code 40 - 60 mg/dL AO ADM SS Cholesterol in LDL [Mass/Vol] 86 mg/dL Invalid Interpretation Code 0 - 130 mg/dL AO ADM SS CO2 [Moles/Vol] 26 mmol/L Invalid Interpretation Code 22 - 29 mmol/L AO ADM SS Creatinine [Mass/Vol] 0.90 mg/dL Invalid Interpretation Code 0.70 - 1.30 mg/dL AO ADM SS Electrolyte Balance 8.0 mEq/L Invalid Interpretation Code 4.0 - 15.0 mEq/L AO ADM SS Globulin 2.7 G/dL Invalid Interpretation Code AO ADM SS Glucose [Mass/Vol] 184 mg/dL Invalid Interpretation Code 70 - 105 mg/dL AO ADM SS Potassium [Moles/Vol] 4.3 mmol/L Invalid Interpretation Code 3.5 - 5.1 mmol/L AO ADM SS Prostate specific Ag [Mass/Vol] 0.55 ng/mL Invalid Interpretation Code 0.00 - 4.00 ng/mL AO ADM SS Protein [Mass/Vol] 7.0 G/dL Invalid Interpretation Code 6.4 - 8.2 G/dL AO ADM SS Sodium [Moles/Vol] 137 mmol/L Invalid Interpretation Code 136 - 145 mmol/L AO ADM SS Triglyceride [Mass/Vol] 227 mg/dL Invalid Interpretation Code 0 - 150 mg/dL AO ADM SS Urea nitrogen [Mass/Vol] 17 mg/dL Invalid Interpretation Code 7 - 18 mg/dL AO ADM SS Urea nitrogen/Creatinine [Mass ratio] 19 ratio Invalid Interpretation Code 7 - 27 ratio AO ADM SS LABORATORYOrdered By: Ny Castañeda on 09-02-2021 Basophil, Absolute 0.10 103/mcL Invalid Interpretation Code 0.00 - 0.19 10^3/mcL AO Auto Heme SS Basophils/100 WBC (Bld) 1.0 % Invalid Interpretation Code 0.0 - 2.5 % AO Auto Heme SS Eosinophil, Absolute 0.20 103/mcL Invalid Interpretation Code 0.00 - 0.40 10^3/mcL AO Auto Heme SS Eosinophils/100 WBC (Bld) 2.6 % Invalid Interpretation Code 0.0 - 7.0 % AO Auto Heme SS Erythrocyte distribution width (RBC) [Ratio] 13.5 % Invalid Interpretation Code 11.5 - 14.5 % AO Auto Heme SS Hematocrit (Bld) [Volume fraction] 47.4 % Invalid Interpretation Code 42.0 - 52.0 % AO Auto Heme SS Hemoglobin (Bld) [Mass/Vol] 16.1 G/dL Invalid Interpretation Code 14.0 - 18.0 G/dL AO Auto Heme SS Lymphocyte, Absolute 2.80 103/mcL Invalid Interpretation Code 0.77 - 3.85 10^3/mcL AO Auto Heme SS Lymphocytes/100 WBC (Bld) 40.2 % Invalid Interpretation Code 10.0 - 50.0 % AO Auto Heme SS MCH (RBC) [Entitic mass] 29.6 pg Invalid Interpretation Code 27.0 - 31.2 pg AO Auto Heme SS MCHC (RBC) [Mass/Vol] 34.0 G/dL Invalid Interpretation Code 31.8 - 35.4 G/dL AO Auto Heme SS MCV (RBC) [Entitic vol] 86.9 fL Invalid Interpretation Code 80.0 - 94.0 fL AO Auto Heme SS Monocyte, Absolute 0.80 103/mcL Invalid Interpretation Code 0.15 - 1.00 10^3/mcL AO Auto Heme SS Monocytes/100 WBC (Bld) 10.7 % Invalid Interpretation Code 1.7 - 13.0 % AO Auto Heme SS Neutrophil, Absolute 3.20 103/mcL Invalid Interpretation Code 2.85 - 6.16 10^3/mcL AO Auto Heme SS Neutrophils/100 WBC (Bld) 45.5 % Invalid Interpretation Code 37.0 - 80.0 % AO Auto Heme SS Platelet mean volume (Bld) [Entitic vol] 7.5 fL Invalid Interpretation Code 7.4 - 10.4 fL AO Auto Heme SS Platelets (Bld) [#/Vol] 305 103/mcL Invalid Interpretation Code 130 - 400 10^3/mcL AO Auto Heme SS RBC (Bld) [#/Vol] 5.45 106/mcL Invalid Interpretation Code 4.04 - 6.13 10^6/mcL AO Auto Heme SS WBC (Bld) [#/Vol] 7.10 103/mcL Invalid Interpretation Code 4.60 - 10.80 10^3/mcL AO Auto Heme SS LABORATORYOrdered By: SYSTEM SYSTEM on 09-02-2021 GFR 108 ml/min/1.73sqm Invalid Interpretation Code AO Chemistry S GFR Non- 89 ml/min/1.73sqm Invalid Interpretation Code AO Chemistry S Vital Signs Date Time Vital Sign Value Performing Clinician Daysi lozano 10-11-2022 09:53-0400 Body height 175 cm YOEL RASHIRODRICK ROBOTICS ENGINEERVIPTALON [facility] 10-11-2022 09:53-0400 Body weight 32.65 kg/m2 YOEL SEJBAPJeT ROBOT[employer] ENGINEERVIPTALON [facility] 10-11-2022 09:53-0400 Body weight 100 kg YOEL ANDERSONJBRODRICK ROBOTICS ENGINEERVIPTALON [facility] 06-20-2021 15:56-0500 Body temperature 97.52 [degF] ROBERT KEEN ROBOTICS ENGINEER[employer] [facility] 06-20-2021 15:56-0500 diastolic 76 mm[Hg] ROBERT KEEN ROBOTICS ENGINEER[employer] [facility] 06-20-2021 15:56-0500 Heart rate 71 /min ROBERT KEEN ROBOT[employer] ENGINEERVIPTALON [facility] 06-20-2021 15:56-0500 Respiratory rate 18 /min ROBERT KEEN ROBOT[employer] ENGINEERVIPTALON [facility] 06-20-2021 15:56-0500 systolic 122 mm[Hg] ROBERT BALTES ROBOTICS ENGINEER-ENVIRONMENTAL HEALTH TECHNICIAN [facility] 06-20-2021 14:50-0500 Body temperature 98.06 [degF] ROBERT BALTES ROBOTICS ENGINEER-ENVIRONMENTAL HEALTH TECHNICIAN [facility] 06-20-2021 14:50-0500 diastolic 78 mm[Hg] ROBERT BALTES ROBOTICS ENGINEER-ENVIRONMENTAL HEALTH TECHNICIAN [facility] 06-20-2021 14:50-0500 Heart rate 79 /min ROBERT BALTES ROBOTICS ENGINEER-ENVIRONMENTAL HEALTH TECHNICIAN [facility] 06-20-2021 14:50-0500 Respiratory rate 18 /min ROBERT BALTES ROBOTICS ENGINEER-ENVIRONMENTAL HEALTH TECHNICIAN [facility] 06-20-2021 14:50-0500 systolic 125 mm[Hg] ROBERT BALTES ROBOTICS ENGINEER-ENVIRONMENTAL HEALTH TECHNICIAN [facility] 06-20-2021 14:25-0500 Body temperature 99.86 [degF] ROBERT BALTES ROBOTICS ENGINEER-ENVIRONMENTAL HEALTH TECHNICIAN [facility] [place] 06-20-2021 14:25-0500 diastolic 82 mm[Hg] ROBERT BALTES ROBOTICS ENGINEER-ENVIRONMENTAL HEALTH TECHNICIAN [facility] [place] 06-20-2021 14:25-0500 Heart rate 95 /min ROBERT BALTES ROBOTICS ENGINEER-ENVIRONMENTAL HEALTH TECHNICIAN [facility] [place] 06-20-2021 14:25-0500 Respiratory rate 18 /min ROBERT BALTES ROBOTICS ENGINEER-ENVIRONMENTAL HEALTH TECHNICIAN [facility] [place] 06-20-2021 14:25-0500 systolic 122 mm[Hg] ROBERT KEEN ROBOTICS ENGINEER-ENVIRONMENTAL HEALTH TECHNICIAN [facility] [place] Encounters Encounter Date Encounter Type Care Provider Facility Start: 06-14-2024 End: 06-14-2024 ambulatory ENMA YAO ROBOTICS ENGINEER - ENVIRONMENTAL HEALTH TECHNICIAN Facility:[facility] Start: 06-14-2024 End: 06-14-2024 Patient encounter procedure ENMA Pk MAXIMILIAN ROBOTICS ENGINEER - ENVIRONMENTAL HEALTH TECHNICIAN [facility] Start: 01-18-2024 End: 01-22-2024 ambulatory ENMA Whittington MAXIMILIAN ROBOTICS ENGINEER - ENVIRONMENTAL HEALTH TECHNICIAN Facility:B Start: 12-28-2023 End: 12-28-2023 ambulatory Robert Hsusidra Facility:[facility] Start: 11-07-2023 End: 11-07-2023 ambulatory VILMA EVERETTETLER ROBOTICS ENGINEER-ENVIRONMENTAL HEALTH TECHNICIAN Facility:[facility] Start: 11-07-2023 End: 11-07-2023 Patient encounter procedure VILMA EVERETTETLER ROBOTICS ENGINEER-ENVIRONMENTAL HEALTH TECHNICIAN [facility] Start: 10-29-2023 ambulatory ENMA Whittington HAAugusto SOTO ROBOTICS ENGINEER - ENVIRONMENTAL HEALTH TECHNICIAN Facility:[facility] Start: 08-31-2023 End: 08-31-2023 ambulatory NAHOMY COOK Facility:[facility] Start: 06-29-2023 End: 07-03-2023 ambulatory ENMA YAO ROBOTICS ENGINEER - ENVIRONMENTAL HEALTH TECHNICIAN Facility:[facility] Start: 06-23-2023 End: 06-23-2023 ambulatory YOEL SEFFENS ROBOTICS ENGINEER-ENVIRONMENTAL HEALTH TECHNICIAN Facility:[facility] Start: 02-05-2023 ambulatory YOEL SEFFEN S ROBOTICS ENGINEER-ENVIRONMENTAL HEALTH TECHNICIAN Facility:[facility] Start: 02-02-2023 End: 02-02-2023 ambulatory YOEL SEFFENS ROBOTICS ENGINEER-ENVIRONMENTAL HEALTH TECHNICIAN Facility:[facility] Start: 10-11-2022 End: 10-11-2022 Patient encounter procedure YOEL SEFFENS ROBOTICS ENGINEER-ENVIRONMENTAL HEALTH TECHNICIAN [facility] Start: 09-01-2022 End: 09-01-2022 Patient encounter procedure YOEL GARCIA ROBOTICS ENGINEER-ENVIRONMENTAL HEALTH TECHNICIAN [facility] Start: 07-20-2022 End: 07-20-2022 Patient encounter procedure ROBERT KEEN ROBOTICS ENGINEER-ENVIRONMENTAL HEALTH TECHNICIAN [facility] Start: 02-10-2022 End: 02-14-2022 Outreach Lab ROBERT KEEN ROBOTICS ENGINEER-ENVIRONMENTAL HEALTH TECHNICIAN [facility] Start: 09-02-2021 End: 09-02-2021 Patient encounter procedure ROBERT KEEN ROBOTICS ENGINEER-ENVIRONMENTAL HEALTH TECHNICIAN [facility] Start: 06-20-2021 End: 06-20-2021 Patient encounter procedure ROBERT KEEN ROBOTICS ENGINEER-ENVIRONMENTAL HEALTH TECHNICIAN [facility] [place] Procedures Date Procedure Procedure Detail Performing Clinician Knee region structur e (body structure) ROBERT OSMANI ROBOTICS ENGINEER-ENVIRONMENTAL HEALTH TECHNICIAN Comment on above: left Immunizations Immunization Date Immunization Notes Care Provider [facility] 06-02-2022 influenza, injectabl e, quadrivalent, contains preservative; Translations: [Fluarix PF Quadrivalent ] ROBERT HSUSIDRA ROBOTICS ENGINEER-ENVIRONMENTAL HEALTH TECHNICIAN [facility] 03-03-2022 zoster vaccine recombinant; Translations: [Shingrix] ROBERT KEEN ROBOTICS ENGINEER-ENVIRONMENTAL HEALTH TECHNICIAN [facility] 11-30-2021 zoster vaccine recombinant; Translations: [Shingrix] ROBERT KEEN ROBOTICS ENGINEER-ENVIRONMENTAL HEALTH TECHNICIAN [facility] 10-07-2020 SARS-CoV-2 (COVID-19 ) mRNA-1273 vaccine ROBERT KEEN ROBOTICS ENGINEER-ENVIRONMENTAL HEALTH TECHNICIAN [facility] [place] Comment on above: Result Comment: 2020: [id number] 09-09-2020 SARS-CoV-2 (COVID-19 ) mRNA-1273 vaccine ROBERT KEEN ROBOTICS ENGINEER-ENVIRONMENTAL HEALTH TECHNICIAN [facility] [place] Comment on above: Result Comment: 2020: [id number] 04-11-2018 pneumococcal conjuga te vaccine, 13 valent ROBERT KEEN ROBOTICS ENGINEER-ENVIRONMENTAL HEALTH TECHNICIAN [facility] [place] Payers Date Payer Category Payer Self-pay 2023 Private Health Insurance [id number] 2023 Private Health Insurance [id number] 2022 Unknown [id number] 1970 Unknown [id number] 2.16.8 [id number] 1970 Unknown [id number] 2.16.8 [id number] 1970 Unknown [id number] 2.16.8 [id number] 1970 Unknown [id number] 2.16.8 [id number] 1970 Unknown [id number] 2.16.8 [id number] 1970 Unknown [id number] 2.16.8 [id number] 1970 Unknown [id number] 2.16.8 [id number] 1970 Unknown [id number] 2.16.8 [id number] 1970 Unknown [id number] 2.16.8 [id number] Unknown [id number] 2.16.8 [id number] Unknown [id number] 2.16.8 [id number] Social History Date Type Detail Facility Start: 05-27-2019 End: 10-19-2023 Never smoked tobacco (finding) [facility] [place] Sex Assigned At Male [facility] Tobacco Nicotine Use: Ch ews. Type: Oral (Snuff, Chew). [facility] Tobacco smoking status [facility] Start: 12-11-2018 Sex Male (finding) [facility] [place] Medical Equipment Procedure Code Equipment Code Equipment Origin al Text Equipment Identifier Dates Blood Glucose Te st Strips Start: 01-20-2020 Lancets Start: 01-20-[address]ps Start: 01-20-2020 Lancets Start: 01-20-2020 See Instructions , BID testing 1 ea = box = 50 assumed, # 3 EA, 1 Refill(s), [facility]acy: [facility] [id number] [facility], Type 2 diabetes mellitus, 172.7, cm, 11/30/21 7:56:00 EDT, Height, 103.1, kg, 11/30/21 7:56:00 EDT, Dosing Weight Start: 11-30-2021 See Instructions , BID testing 1 ea = box = 50 assumed, # 3 EA, 1 Refill(s), [facility], Dysuria, 172.7, cm, 11/30/21 7:56:00 EDT, Height, 103.1, kg, 11/30/21 7:56:00 EDT, Dosing Weight Start: 11-30-2021 See Instructions , BID testing 1 ea = box = 50 assumed, # 3 EA, 1 Refill(s), [facility]acy: [facility] [id number], Type 2 diabetes mellitus, 172.7, cm, 11/30/21 7:56:00 EDT, Height, 103.1, kg, 11/30/21 7:56:00 EDT, Dosing Weight Start: 11-30-2021 See Instructions , BID testing 1 ea = box = 50 assumed, # 3 EA, 1 Refill(s), [facility]acy: [facility], Dysuria, 172.7, cm, 11/30/21 7:56:00 EDT, Height, 103.1, kg, 11/30/21 7:56:00 EDT, Dosing Weight Start: 11-30-2021 See Instructions , BID testing 1 ea = box = 50 assumed, # 3 EA, 1 Refill(s), Pharmacy: [facility] #[id number], Type 2 diabetes mellitus, 175, cm, 09/01/22 8:37:00 EDT, Height, 102.3, kg, 09/01/22 8:37:00 EDT, Dosing Weight Start: 09-01-2022 See Instructions , BID testing 1 ea = box = 50 assumed, # 3 EA, 1 Refill(s), Pharmacy: [facility] #[id number], Dysuria, 175, cm, 09/01/22 8:37:00 EDT, Height, 102.3, kg, 09/01/22 8:37:00 EDT, Dosing Weight Start: 09-01-2022 See Instructions , BID testing 1 ea = box = 50 assumed Please dispense [facility] strips to match pt's meter, # 3 EA, 0 Refill(s), Pharmacy: [facility] #[id number], Type 2 diabetes mellitus, 175, cm, 09/01/22 8:37:00 EDT, Height, 102.3, kg, 09/01/22 8:37:... Start: 09-26-2022 See Instructions , BID testing 1 ea = box = 50 assumed, # 3 EA, 1 Refill(s), Pharmacy: [facility] #[id number], Dysuria, 175, cm, 09/01/22 8:37:00 EDT, Height, 102.3, kg, 09/01/22 8:37:00 EDT, Dosing Weight Start: 09-01-2022 See Instructions , BID testing 1 ea = box = 50 assumed Please dispense [facility] strips to match pt's meter, # 3 EA, 0 Refill(s), Pharmacy: [facility], Type 2 diabetes mellitus, 173.5, cm, 10/19/23 8:49:00 EDT, Height, 97.5, kg, 10/19/23 8:49:00 EDT, Dosing Weight Start: 10-19-2023 See Instructions , BID testing 1 ea = box = 50 assumed, # 3 EA, 1 Refill(s), Pharmacy: [facility], Dysuria, 173.5, cm, 10/19/23 8:49:00 EDT, Height, 97.5, kg, 10/19/23 8:49:00 EDT, Dosing Weight Start: 10-19-2023 Evaluation + Plan note Note Date & Type Note Facility Evaluation + Plan note No data available for this section [facility] [place] Evaluation + Plan note Note Date & Type Note Facility Evaluation + Plan note Future Appointments Appointment Date:11/25/2021 11:00:00 AM Scheduled Provider:ROBERT KEEN Location:[facility] Appointment Type:PC OV Follow Up [facility] Evaluation + Plan note Note Date & Type Note Facility Evaluation + Plan note Future Appointments Appointment Date:03/03/2022 08:30:00 AM Scheduled Provider:ROBERT KEEN Location:[facility] Appointment Type:PC OV [facility] Evaluation + Plan note Note Date & Type Note Facility Evaluation + Plan note Future Appointments Appointment Date:08/31/2022 08:30:00 AM Scheduled Provider:ROBERT KEEN Location:[facility] Appointment Type:PC OV [facility] Evaluation + Plan note Laboratory Note Date & Type Note Facility Evaluation + Plan note Future Appointments Appointment Date:12/08/2022 08:00:00 AM Scheduled Provider:YOEL GARCIA Location:[facility] Appointment Type:PC OV Follow Up Diagnostic Tests PendingGlutamic Acid Decarboxylase 09/01/22Gliadin Antibody 09/01/22 Future Scheduled TestsCeliac Serology 09/01/22 [facility] Evaluation + Plan note Laboratory Note Date & Type Note Facility Evaluation + Plan note Future Appointments Appointment Date:12/08/2022 08:00:00 AM Scheduled Provider:YOEL GARCIA Location:[facility] Appointment Type:PC OV Follow Up Appointment Date:12/08/2022 03:30:00 PM Scheduled Provider: Location:[facility] Appointment Type:DB Diabetic Individual Visit (AOH) Future Scheduled TestsCeliac Serology 09/01/22 [facility] Evaluation + Plan note LaboratoryRadiology Note Date & Type Note Facility Evaluation + Plan note Future Appointments Appointment Date:11/09/2023 08:00:00 AM Scheduled Provider: Location:[facility] Appointment Type:MRI Shoulder w/o Contrast Right Appointment Date:01/18/2024 09:00:00 AM Scheduled Provider:ENMA YAO APRN, CNP Location:[facility] Appointment Type:PC OV Future Scheduled TestsProstate Specific Antigen 12/28/23A1C Hemoglobin 12/28/23Complete Blood Count 12/28/23Lipid Profile 12/28/23Albumin/Creatinine Ratio, Random Urine 12/28/23Complete Metabolic Panel 12/28/23CT Abdomen w/o Contrast 11/07/23MRI Shoulder w/o Contrast Right 11/09/23 [facility] Evaluation + Plan note LaboratoryRadiology Note Date & Type Note Facility Evaluation + Plan note Future Appointments Appointment Date:06/20/2024 07:20:00 AM Scheduled Provider:ENMA YAO APRN, CNP Location:[facility] Appointment Type:PC OV Follow Up Future Scheduled VjpuhT0T Hemoglobin 12/28/23Lipid Profile 12/28/23Lipid Profile 04/19/24Albumin/Creatinine Ratio, Random Urine 04/19/24Albumin/Creatinine Ratio, Random Urine 04/25/24Complete Metabolic Panel 12/28/23Complete Metabolic Panel 04/19/24CT Abdomen w/o Contrast 11/07/23 [facility] Hospital Discharge instructions Note Date & Type Note Facility Hospital Discharge instructions No data available for this section [facility] [place] Progress note Note Date & Type Note Facility Progress note No data available for this section [facility] Summary Purpose Family History No Family History Records Found Advance Directives No Advanced Directives Records FoundNo Advanced Directives Records FoundNo Advanced Directives Records Found Additional Source Comments Care Team (unrecognized sect ion and content) Care Team Personnel Name: ROBERT KEEN Position: P4 Advanced Practice Nurse Member Role: Primary Care Physician Address: Address: [address] [place] [address]- Care Team Related Persons Name: KESHAV VIRAMONTES Address: Home [address] [place] [phone] Care Team Personnel Name: ROBERT KEEN Position: P4 Advanced Practice Nurse Member Role: Primary Care Physician Address: Address: [address] [place] [address] Care Team Related Persons Name: KESHAV VIRAMONTES Address: Home [address] [place], [place] [phone] Patient Care team informatio n (unrecognized section and content) Care Team Personnel Name: ROBERT KEEN Position: P4 Advanced [employer] Cook Member Role: Primary Care Address: Address: [address] [place] [address]- Name: YOEL GARCIA Position: P4 Advanced [employer] Fry Cook Member Role: Primary Care Physician Address: Address: [address] [place] [address] Care Team Related Persons Name: KESHAV VIRAMONTES Address: Home [address] [place], [place] [phone] Care Team Personnel Name: ROBERT KEENENVIRONMENTAL HEALTH TECHNICIAN Position: P4 Advanced [employer] Fry Cook Member Role: Primary Care Address: Address: [address] [place] [address], [place] [address]- [place] Name: YOEL GARCIA APRN-ENVIRONMENTAL HEALTH TECHNICIAN Position: P4 Advanced [employer] Fry Cook Member Role: Primary Care Physician Address: Address: [address] [place] [address] Care Team Related Persons Name: ROZ VIRAMONTES Katharina Address: Home [address] [facility], [place] [phone] [place] Address: Temporary [address] [facility], [place] [phone] Name: KESHAV VIRAMONTES Address: Home [address] [place], [place] [phone] [place] Care Team Personnel Name: ROBERT KEEN APRN-ENVIRONMENTAL HEALTH TECHNICIAN Position: P4 Advanced [employer] Fry Cook Member Role: Primary Care Address: Address: [address] [place] [address] Name: ENMA YAO ROBOTICS ENGINEER - ENVIRONMENTAL HEALTH TECHNICIAN Position: P4 Advanced [employer] Fry Cook Member Role: Primary Care Physician Address: Address: [address] [place] [address] Care Team Related Persons Name: MALDONADOROZ SRINIVASAN Address: Home [address] [facility], [place] [phone] [place] Address: Temporary [address] [facility], [place] [phone] Name: KESHAV VIRAMONTES Address: Home [address] [place], [place] [phone] [place] Care Team Personnel Name: ROBERT KEEN APRN-ENVIRONMENTAL HEALTH TECHNICIAN Position: P4 Advanced [employer] Fry Cook Member Role: Primary Care Address: [address] [place] [id number] [place] [address] Telecom: Name: ENMA YAO ROBOTICS ENGINEER - ENVIRONMENTAL HEALTH TECHNICIAN Position: P4 Advanced Fast Food Fry Cook Member Role: Primary Care Physician Address: [address] [place] [address] Telecom: Care Team Related Persons Name: MALDONADOROZ SRINIVASAN Name: KESHAV VIRAMONTES (unrecognized sect ion and content) No Status Records FoundNo Status Records FoundNo Status Records Found INFORMATION SOURCE (unrecogn ized section and content) DATE CREATED AUTHOR 01/28/2024 [facility] ([place]) DATE CREATED AUTHOR AUTHOR'S ORGANIZ ATION 03/21/2024 [facility] DATE CREATED AUTHOR AUTHOR'S ORGANIZ ATION 10/02/2024 [facility] FOR RECORDS PERTAINING TO PATIENTS WHO ARE OR HAVE BEEN ENROLLED IN A CHEMICAL DEPENDENCY/SUBSTANCEABUSE PROGRAM, SOME INFORMATION MAY BE OMITTED. This clinical summary was aggregated from multiple sources. Caution should be exercised in using it in the provision of clinical care. This summary normalizes information from multiple sources, and as a consequence, information in this document may materially change the coding, format and clinical context of patient data. In addition, data may be omitted in some cases. CLINICAL DECISIONS SHOULD BE BASED ON THE PRIMARY CLINICAL RECORDS. [employer] [facility]. provides no warranty or guarantee of the accuracy or completeness of information in this document.
--- NOTE | 2024-11-29 10:49 | MRI_ITS ---
PROCEDURE: SPINE LUMBAR W/WO CONTRAST 11/29/2024 REASON FOR EXAM: PRIOR BACK SURGERY WITH INCREASING PAIN AND LEFT-SIDED TINGLING, URINARY INCONTINENCE. TECHNIQUE: Multiplanar and multisequence images were obtained without and with intravenous gadolinium-based contrast administration. CONTRAST: Clariscan VOLUME: 20mL COMPARISON: None. FINDINGS: Vertebrae: Prior L3-5 laminectomy. Mild chronic height loss of the T11 and 12 vertebral bodies. The lumbar vertebral body heights are maintained. No acute fracture. Alignment: No traumatic or degenerative listhesis. Conus Medullaris: Normal position and signal, terminating at the L1-2 vertebral body. L1-2: Unremarkable. L2-3: Unremarkable. L3-4: Mild disc space narrowing, diffuse disc bulging and ligamentum flavum thickening, resulting in moderate central and mild bilateral neural foraminal stenosis. L4-5: Mild disc space narrowing, diffuse disc bulging and ligamentum flavum thickening, resulting in mild central and moderate bilateral neural foraminal stenosis. L5-S1: Mild disc bulging resulting in mild central and mild bilateral neural foraminal stenosis. Sacrum: Visualized upper sacrum and SI joints are unremarkable. Pelvic structures: Tiny bilateral renal cysts. Postcontrast images: No contrast enhancing lesion. Soft tissues: Prior L3-5 laminectomy with postoperative scarring. MRI/Spine Lumbar W/WO Contrast IMPRESSION: 1. Prior L3-5 laminectomy with moderate central canal stenosis at L3-4, and mod erate bilateral neural foraminal stenosis at L4-5. Additional degenerative findings as described. 2. No contrast-enhancing lesion. Reading Location: [id number]
--- NOTE | 2024-11-29 10:51 | ED.VIS.BACK ---
HPI History of Present Illness Chief Complaint: Back Informant: patient and spouse/S.O. Onset/Context/Timing Onset: Days Context: Gradual Onset Timing: Continuous Quality: Sharp Location: Lumbar and Left Leg Current Severity: Moderate Maximum Severity: Moderate Worsened by: improves with Movement Relieved by: Remaining Still Associated Symptoms Associated Symptoms: Numbness, Tingling, Radiation to Left Leg and Urinary Incontinence; Negative for Fever, Abdominal Pain, Dysuria, Unable to Ambulate, Unable to Transfer, Urinary Retention, Constipation or Fecal Incontinence Narrative Narrative: 54-year-old male in 2019 he had back surgery done by Dr. Dawson at the [facility] for degenerative disc disease of his lumbar spine. No fusion. States he done pretty well since then about a year year and a half ago had a flareup but has been doing well. This past week he has been increasing left lower back pain with radiation to his left leg at times tingling and had 1 bout of urinary incontinence last night. He was actually seen by the [facility] quick care today. They wrote him for muscle relaxant and steroids but he has not been able to pick those up yet. Due to the incontinence last night they wanted to get an MRI. He denies any fever. No abdominal pain. Prior similar symptoms: Yes Recent Illness/Hospitalization: No PFSH PFSH Home Medications ?Medication ?Instructions ?Recorded ?Last Taken ?Type metformin 500 mg tablet 1,000 mg PO BID 10/10/14 11/28/24 History lisinopril 10 mg tablet 10 mg PO DAILY 10/03/20 11/28/24 History simvastatin 10 mg tablet 10 mg PO QHS 10/03/20 11/28/24 History cyclobenzaprine 10 mg tablet 10 mg PO TID 11/29/24 Unknown History empagliflozin 25 mg tablet 25 mg PO DAILY 11/29/24 11/28/24 History (Jardiance) insulin glargine 100 unit/mL (3 44 unit subcut QHS 11/29/24 Unknown History mL) subcutaneous pen (Lantus Solostar U-100 Insulin) oxycodone-acetaminophen 5 mg-325 1 tab PO Q4H PRN pain 4 days #14 11/29/24 Unknown Rx mg tablet (Percocet) tabs prednisone 20 mg tablet 60 mg PO DAILY 11/29/24 Unknown History tadalafil 5 mg tablet 5 mg PO DAILY 11/29/24 11/28/24 History Allergy/AdvReac Type Severity Reaction Status Date / Time No Known Allergies Allergy Verified 11/29/24 09:55 Social History Smoking Status: Never smoker ROS ROS ED ROS Narrative Low back pain. Pain rating down his left leg. 1 episode of urinary incontinence last night. Constitutional Constitutional ED: Denies chills or fever(s) Eyes Eyes: Denies blurry vision ENT ENT ED: Denies ear pain Cardiovascular Cardiovascular: Denies chest pain Respiratory/Chest Respiratory/Chest: Denies dyspnea Gastrointestinal Gastrointestinal: Denies abdominal pain, constipation, diarrhea, melena or nausea Genitourinary Genitourinary ED: Denies dysuria or hematuria Musculoskeletal Musculoskeletal: Reports back pain; Denies arthralgias, myalgias or neck pain Integumentary Denies abscess or Abrasions Neurologic Neurologic: Denies headache(s) Psychiatric Psychiatric: Denies anxiety Endocrine Endocrinology: Denies cold intolerance Hematologic/Lymphatic Hematologic/Lymphatic: Denies easy bleeding, easy bruising or lymphadenopathy Allergic/Immunologic Allergic/Immunologic ED: Denies mouth swelling, tongue swelling or urticaria EXAM Physical Exam Narrative Exam Narrative: 54-year-old male standing in the room. present. Vital signs are stable afebrile. H EENT exam pupils round reactive light. Moist mucous membranes. Neck nontender. Back is nontender. Is a well-healed lumbar surgical incision. It is dry and clean. It is an old incision from years ago. He has mild tenderness over his left SI. He is standing. He is able to raise up on his toes. Lungs are clear. Heart regular rhythm. Abdomen soft nontender. Moving all 4 extremities. Neurovascularly intact. He has no cauda equina. He has normal touch sensation. Normal perianal sensation. He has good motor strength in both lower extremities. And again he is standing he can raise up on his toes. Patient is awake alert. Answering questions following commands. Const Vital Signs: 11/29/24 09:52 11/29/24 10:53 11/29/24 11:00 Temperature 97.1 F L Temperature Source Temporal Pulse Rate 91 83 84 Respiratory Rate 14 19 H 19 H Blood Pressure 139/79 H 150/79 H 98/77 Blood Pressure Mean 99 102 84 Pulse Ox 98 95 95 Oxygen Delivery Method Room Air Room Air Room Air 11/29/24 12:54 11/29/24 14:00 11/29/24 15:00 Temperature Temperature Source Pulse Rate 85 75 75 Respiratory Rate 19 H 16 16 Blood Pressure 149/81 H 145/84 H 148/71 H Blood Pressure Mean 103 104 96 Pulse Ox 97 97 99 Oxygen Delivery Method Room Air Room Air Room Air Positive well nourished and well developed; Negative for cachectic or unkempt General Appearance ED: well developed and NAD; Negative for unkempt, cachectic or pallor Nutritional Appearance: Negative for cachectic HEENT Reports moist mucous membranes Eyes PERRL and EOMs intact bilaterally Neck no lymphadenopathy, supple and no JVD Resp normal respiratory effort and clear to auscultation bilaterally Cardio regular rate, regular rhythm, S1 normal heart sound, S2 normal heart sound and no murmurs GI normal to inspection, nondistended, normoactive bowel sounds, soft to palpation, non-tender, non-distended and no masses Inspection: Negative for abdominal distention Palpation: Negative for tender, guarding, mass or pulsatile mass Back/Spine normal to inspection and no thoracic nor lumbar tenderness Back/Spine Narrative: Tenderness over his left SI joint. Well-healed lumbar surgical incision from years ago. No lumbar tenderness. General Back: Negative for CVA tenderness Cervical Spine: Negative for cervical spine tenderness and Negative for paracervical muscle tenderness Thoracic Spine / Upper Back: Negative for paraspinal muscle tenderness Extremity normal to inspection and no clubbing, cyanosis or edema General Extremety ED: Negative for edema or tenderness General Extremity: Negative for edema Neuro oriented x3 and no sensory deficits noted Sensorium / Orientation: alert; Negative for confused, lethargic or stuporous Sensory Exam: No other Motor Exam: strength 5/5 throughout Psych mental status grossly normal Appearance: Negative for unkempt Skin no rashes or lesions noted and no wounds General Skin Exam: Negative for jaundice or pallor Lesions: No lesion noted Rashes: No rashes noted Trauma: Negative for abrasion Wounds: Negative for wounds noted MDM MDM MDM Narrative Medical decision making narrative: 54-year-old male prior back surgery with history of degenerative disc disease. Increasing pain over the last week of pain rating down his left leg. 1 episode of urinary incontinence last night. He will be given Dilaudid and Zofran for pain. I have spoken to MRI I have ordered an MRI of his lumbar spine with and without contrast. Repeat exam patient doing well at 3:45 PM. We discussed his MRI results. Follow-up with a spine surgeon at the [facility] this coming week. He knows to return if signs of cauda equina. If he is feeling worse, increasing pain bowel or bladder incontinence or retention. He was written for steroids and muscle relaxant by the [facility] which he is picking up. Already in for Percocet for pain. History & Record Review Discussion w/independent historian: Patient and Family Additional record(s) reviewed:: Prior outpatient record, Prior ED visit and Prior labs Radiography Diagnostic Testing: Clinical Impression(s) from Imaging Studies Lumbar Spine MRI 11/29/24 10:49 IMPRESSION: 1. Prior L3-5 laminectomy with moderate central canal stenosis at L3-4, and moderate bilateral neural foraminal stenosis at L4-5. Additional degenerative findings as described. 2. No contrast-enhancing lesion. Reading Location: [facility] Discharge Plan Triage Chief Complaint: Back ED Provider: Froylan Barkley Dx/Rx/DC Orders Clinical Impression: Low back pain, Degenerative disc disease, History of back surgery Instructions: ED Degenerative Disk Disease Prescriptions: New oxycodone-acetaminophen [Percocet] 5-325 mg tablet 1 tab PO Q4H PRN (Reason: pain) 4 Days Qty: 14 0RF No Action metformin 500 MG tablet 1,000 mg PO BID Patient Comments: diabetes simvastatin 10 MG tablet 10 mg PO QHS lisinopril 10 MG tablet 10 mg PO DAILY Jardiance 25 mg tablet 25 mg PO DAILY tadalafil 5 mg tablet 5 mg PO DAILY insulin glargine [Lantus Solostar U-100 Insulin] 100 unit/mL (3 mL) insulin pen 44 unit subcut QHS cyclobenzaprine 10 mg tablet 10 mg PO TID Patient Comments: PT HAS NOT YET PICKED UP FROM PHARMACY. prednisone 20 mg tablet 60 mg PO DAILY Patient Comments: PT HAS NOT YET PICKED UP FROM PHARMACY. Primary Care Provider: Francois English NP Referrals: Corwin Dawson, DO [Non-Staff] - As soon as possible Francois English FINAL TESTER, FINAL TESTER-C [Primary Care Provider] - Activity Restrictions/Additional Instructions: Take your steroids and muscle relaxant as prescribed by the [facility]. I wrote you for Percocet for pain. Call and follow-up with your orthopedic physician at the [facility] this week. Call their office on Sunday for an appointment to be seen this week. If they are unable to get you in you can follow-up with our orthopedic physician here Dr. Sultana. If you develop increasing pain, fever, bowel or bladder incontinence then you need to return. Also severe weakness in your legs. Print Language: Serbian Disposition Disposition: Home, Self Care
[2024-11-29] MEDS: HYDROmorphone 1 MG/ML Syringe IV (11:21)
[2024-11-29] MEDS: Ondansetron 4 MG/2 ML Vial IV (11:21)
[2024-11-29] MEDS: Ketorolac 30 MG/ML Syringe IV (13:00)
[2024-11-29] MEDS: HYDROmorphone 0.5 MG/0.5 ML SYRINGE IV ×3 (13:00→16:01)
== END 2024-11-29 16:22 | disposition home or self-care (01) ==
PROVIDERS: Emergency Provider Emergency Medicine; PCP Nurse Practitioner Family; Visit Provider Emergency Medicine
DX: M51.362 Other intervertebral disc degeneration, lumbar region with discogenic back pain and lower extremity pain (principal); Z79.4 Long term (current) use of insulin; R32 Unspecified urinary incontinence; Z79.84 Long term (current) use of oral hypoglycemic drugs; Z79.899 Other long term (current) drug therapy
CPT/HCPCS: 72158; 96374; 96375; 96376; 99282; A9575; A4216; J2405